=== PATIENT | male | born 1940 | race Caucasian/White ===

== ENCOUNTER 2016-08-25 14:09 | Outpatient (RCR) | payer OTHER ==
[~2016-08-25 14:09] MED LIST: AMLO5TAB2 PO; ASA PO; ASP81CT PO; CLIN300C3 PO; DCS100C PO; DUTA1CPM PO; FURO40TA4 PO; HYDR-707 PO; HYDR1TAB66 PO; HYDR1TAB86 PO; JAYLIN PO; KCL20TCR PO; MELO-195 PO; NFNEB10T PO; PNT40TEC PO; PRD20T PO; SIMV40TA4 PO; TRM50T PO
--- OUTSIDE RECORDS SUMMARY | 2016-08-25 14:13 | XMS REPORT | Continuity of Care Document ---
Author Author [facility] Organization [facility] Address Unknown Phone Unavailable Care Team Providers Care Diploma Pharmacy Technician Name Role Phone DEMARCUS BRADY MD PCP Insurance Providers Payer Name Policy Number Subscriber Name [id number] Lucy Melara 01 Advance Directives Directive Response Recorded Date/Time Advance Directives No 07/18/14 11:35am Health Care Power of Cannon Crewmember No 07/18/14 11:35am Organ Donor No 07/18/14 11:35am Resuscitation Status Full Code 07/18/14 11:35am Problems Medical Problems Problem Onset Date Status Anaphylactic reaction Unknown Active Medications Medication Dose Route Sig Days/Qty Instructions Order Date Discontinued Date Status Nebivolol Hcl 10 Mg PO DAILY 08/15/11 Active Meloxicam (Mobic) 15 Mg PO DAILY 08/15/11 06/10/13 Discontinued [Asa ] 81 Mg PO DAILY 08/15/11 10/02/12 Discontinued [Stacie] 0.5 PO BEDTIME 0.5/0.4MG DAILY 08/15/11 01/11/13 Discontinued Acetaminophen/Hydrocodone Bitart (Lortab) 1 Each PO Q 4 - 6 HRS PRN 08/15/11 01/03/13 Discontinued Amlodipine Besylate (Norvasc 5 Mg) 5 Mg PO DAILY 08/15/11 05/16/12 Discontinued Simvastatin 40 Mg PO BEDTIME 05/04/12 Active Furosemide (Lasix) 40 Mg PO DAILY 05/16/12 10/02/12 Discontinued Potassium Chloride 20 Meq PO DAILY 05/16/12 10/02/12 Discontinued Docusate Sodium 100 Mg PO THREE TIMES A DAY 05/16/12 10/02/12 Discontinued Tramadol HCl 50 Mg PO NEEDED 05/16/12 10/02/12 Discontinued Clindamycin HCl 1 Each PO FOUR TIMES DAILY 40 Qty 05/16/12 10/02/12 Discontinued Aspirin 81 Mg PO DAILY 10/02/12 Active Dutasteride/Tamsulosin Hcl 1 Tab PO BEDTIME 0.5/0.4mg TABS 01/11/13 Active Docusate Sodium 200 Mg PO TWICE A DAY PRN 01/11/13 06/10/13 Discontinued Hydrocodone Bit/Acetaminophen 5 - 500 Mg PO BEDTIME FOR PAIN 01/11/13 01/20/14 Discontinued Acetaminophen/Hydrocodone Bitart 1 - 2 Each PO Q 4 - 6 HR PRN 40 Qty 06/10/13 Discontinued Pantoprazole Sodium 1 Tab PO DAILY 30 Qty 06/10/13 Active Prednisone 20 Mg PO TWICE A DAY 3 Days 07/18/14 Active Social History Social History Problem Response Recorded Date/Time Alcohol Use Denies Use 07/18/2014 11:35am Recreational Drug Use No 07/18/2014 11:35am Recent Foreign Travel No 07/18/2014 11:35am Recent Infectious Disease Exposure No 07/18/2014 11:35am Hospitalization with Isolation Denies 07/18/2014 11:35am Smoking Status Never a Smoker 07/18/2014 11:35am Query Response Start Date Stop Date Smoking Status Never a Smoker Hospital Discharge Instructions No hospital discharge instructions. Plan of Care No plan of care. Functional Status No functional status results. Allergies, Adverse Reactions, Alerts Allergen Type Severity Reaction Status Last Updated Iodinated Contrast Media - IV Dye Allergy Severe ANAPHYLAXIS Active morphine Allergy Intermediate RASH Active 05/16/12 iv contrast dye Allergy Severe anaphylaxis Active 07/18/14 Immunizations No immunization records. Vital Signs Acute Vital Signs Vital Response Date/Time Temperature (Fahrenheit) 99.4 degrees F (97.6 - 99.5) Temperature (Calculated Celsius) 37.49534 degrees C (36.4 - 37.5) Temperature Source Temporal Pulse Rate (adult) 107 bpm (60 - 90) Respiratory Rate 26 bpm (12 - 24) O2 Sat by Pulse Oximetry 97 % (88 - 100) Blood Pressure 143/70 mm Hg Pain Pain Intensity 0 Height (Feet) 5 feet Height (Inches) 5 inches Height (Calculated Centimeters) 165.785844 cm Weight (Pounds) 160 pounds Weight (Calculated Kilograms) 72.296550 kilograms Calculated BMI 26.62 Results Test Source Date Result Interp. Ref. Range Comments Activated Partial Thromboplast Time May 16, 2012 10:10pm 36 SEC H 24- 35 Alanine Aminotransferase (ALT/SGPT) July 15, 2014 3:03pm 16 U/L N 0 -55 Albumin July 15, 2014 3:03pm 3.6 G/DL N 3.2-4.5 Alkaline Phosphatase July 15, 2014 3:03pm 64 U/L N 40-136 Aspartate Amino Transf (AST/SGOT) July 15, 2014 3:03pm 13 U/L N 5- 34 BUN/Creatinine Ratio July 15, 2014 3:03pm 19 - Basophils # (Auto) July 15, 2014 3:03pm 0.0 10^3/uL N 0.0-0.1 Basophils (%) (Auto) July 15, 2014 3:03pm 0 % N 0-10 Blood Urea Nitrogen July 15, 2014 3:03pm 15 MG/DL N 7-18 Calcium Level July 15, 2014 3:03pm 9.0 MG/DL N 8.5-10.1 Carbon Dioxide Level July 15, 2014 3:03pm 32 MMOL/L N 21-32 Chloride Level July 15, 2014 3:03pm 104 MMOL/L N 98-107 Creatine Kinase MB May 04, 2012 2:31pm 2.3 NG/ML N 0.0-3.6 Creatinine July 15, 2014 3:03pm 0.81 MG/DL N 0.60-1.30 Eosinophils # (Auto) July 15, 2014 3:03pm 0.1 10^3/uL N 0.0-0.3 Eosinophils (%) (Auto) July 15, 2014 3:03pm 1 % N 0-10 Erythrocyte Sedimentation Rate May 16, 2012 10:10pm 28 MM/HR N 0-30 Ferritin July 15, 2014 3:03pm 26 NG/ML - Glucose Level July 15, 2014 3:03pm 102 MG/DL N 70-105 Hematocrit July 15, 2014 3:03pm 42 % N 40-54 Hemoglobin July 15, 2014 3:03pm 14.3 G/DL N 13.3-17.7 Hemoglobin A1c May 21, 2013 11:25am 5.7 % N 4.5-6.2 Iron Level July 15, 2014 3:03pm 62 UG/DL - Lymphocytes # (Auto) July 15, 2014 3:03pm 1.2 X 10^3 N 1.0-4.0 Lymphocytes (%) (Auto) July 15, 2014 3:03pm 16 % N 12-44 Magnesium Level January 19, 2013 9:15am 1.8 MG/DL N 1.8-2.4 Mean Corpuscular Hemoglobin July 15, 2014 3:03pm 33 PG N 25-34 Mean Corpuscular Hemoglobin Concent July 15, 2014 3:03pm 34 G/DL N 32-36 Mean Corpuscular Volume July 15, 2014 3:03pm 96 FL N 80-99 Mean Platelet Volume July 15, 2014 3:03pm 9.5 FL N 7.4-10.4 Monocytes # (Auto) July 15, 2014 3:03pm 0.7 X 10^3 N 0.0-1.0 Monocytes (%) (Auto) July 15, 2014 3:03pm 10 % N 0-12 Myoglobin May 04, 2012 2:31pm 43 UG/L N 10-92 Neutrophils # (Auto) July 15, 2014 3:03pm 5.1 X 10^3 N 1.8-7.8 Neutrophils (%) (Auto) July 15, 2014 3:03pm 72 % N 42-75 Phosphorus Level January 19, 2013 9:15am 3.6 MG/DL N 2.5-4.9 Platelet Count July 15, 2014 3:03pm 187 10^3/uL N 130-400 Potassium Level July 15, 2014 3:03pm 4.0 MMOL/L N 3.6-5.0 Prealbumin January 18, 2013 9:30am 14.2 MG/DL L 18.0-35.7 Comments to Supervisor Electronics Inspection: USE BLOOD IN LAB IF POSSIBLEComments to Supervisor Electronics Inspection: USE BLOOD IN LAB IF POSSIBLE Prothromb Time International Ratio May 16, 2012 10:10pm 1.0 N 0.8- 1.4 INTERPRETIVE DATASUGGESTED THERAPEUTIC RANGE FOR INR'S : VENOUS THROMBOSIS, PULMONARY EMBOLISM, OR PREVENTION OF SYSTEMIC EMBOLISM (EG. IN ATRIAL FIBRILLATION): 2.0 - 3.0 MECHANICAL PROSTHETIC HEART VALVES: 2.5 - 3.5* *NOTE: INR'S UP TO 4.5 MAY BE NECESSARY IN SELECTED GROUPS OF HIGH RISK PATIENTS. [employer] CONSENSUS CONFERENCE ON ANTITHROMBOTIC THERAPY (2000). Prothrombin Time May 16, 2012 10:10pm 13.6 SEC N 12.2-14.7 Red Blood Count July 15, 2014 3:03pm 4.36 10^6/uL N 4.35-5.85 Red Cell Distribution Width July 15, 2014 3:03pm 12.4 % N 10.0- 14.5 Sodium Level July 15, 2014 3:03pm 142 MMOL/L N 135-145 Total Bilirubin July 15, 2014 3:03pm 0.3 MG/DL N 0.1-1.0 Total Iron Binding Capacity July 15, 2014 3:03pm 285 UG/DL - Total Protein July 15, 2014 3:03pm 6.2 G/DL L 6.4-8.2 Transferrin % Saturation July 15, 2014 3:03pm 22 % - Triglycerides Level January 18, 2013 9:30am 76 MG/DL N 30.0-150.0 Comments to Supervisor Electronics Inspection: USE BLOOD IN LAB IF POSSIBLEComments to Supervisor Electronics Inspection: USE BLOOD IN LAB IF POSSIBLE Troponin I May 04, 2012 2:31pm 0.15 MG/ML H 0.00-0.10 Urine Bacteria May 21, 2013 4:20pm NEGATIVE /HPF - Urine Bilirubin June 18, 2013 1:45pm NEGATIVE - Urine Casts May 21, 2013 4:20pm NONE /LPF - Urine Clarity June 18, 2013 1:45pm CLEAR - Urine Color June 18, 2013 1:45pm YELLOW - Urine Crystals May 21, 2013 4:20pm NONE /LPF - Urine Culture Indicated May 21, 2013 4:20pm NO - Urine Glucose (UA) June 18, 2013 1:45pm NEGATIVE - Urine Ketones June 18, 2013 1:45pm NEGATIVE - Urine Leukocyte Esterase June 18, 2013 1:45pm NEGATIVE - Urine Mucus May 21, 2013 4:20pm NEGATIVE /LPF - Urine Nitrite June 18, 2013 1:45pm NEGATIVE - Urine Protein June 18, 2013 1:45pm NEGATIVE - Urine RBC May 21, 2013 4:20pm NONE /HPF - Urine Specific [place] June 18, 2013 1:45pm 1.015 L - Urine Urobilinogen June 18, 2013 1:45pm NORMAL MG/DL - Urine WBC May 21, 2013 4:20pm RARE /HPF - Urine pH June 18, 2013 1:45pm 7 - White Blood Count July 15, 2014 3:03pm 7.1 10^3/uL N 4.3-11.0 Glucometer January 20, 2013 10:50am 116 MG/DL H 70-110 Lab Scanned Report May 04, 2012 3:40pm LAB Reports [id number] - Estimat Glomerular Filtration Rate July 15, 2014 3:03pm > 60 - GFR INTERPRETIVE DATA UNITS FOR ESTIMATED GFR (eGFR): mL/min/1.73 M2 REFERENCE RANGE FOR ESTIMATED GFR (eGFR) eGFR NORMAL eGFR >60 MODERATELY DECREASED eGFR 30-59 SEVERLY DECREASED eGFR 15-29 KIDNEY FAILURE <15 (OR DIALYSIS) Creatine Kinase May 04, 2012 2:31pm 102 U/L N 1-205 Cardiac Panel Pathologist Review May 04, 2012 2:31pm SEE CARDIAC PATH REV - Stool Occult Blood Immunoassay May 24, 2013 10:10am NEGATIVE - SPECIMEN #2 Urine RBC (Auto) June 18, 2013 1:45pm NEGATIVE - Blood Culture Peripheral-Lt Hand May 16, 2012 10:25pm No growth MRSA Screen Nasal January 11, 2013 9:00am MRSA not isolated Procedures No known history of procedures. Encounters Encounter Location Date/Time Departed Emergency Room Via [facility] 07/18/14 11:29am Registered Clinic Via [facility] 07/18/14 9:52am Registered Recurring Via [facility] 07/15/14 2:59pm Recent Diagnosis
[2016-08-25 14:36] LABS: BASOPHILS % (AUTO) 0 % (0-10); EOSINOPHILS # (AUTO) 0.1 10^3/uL (0.0-0.3); EOSINOPHILS % (AUTO) 1 % (0-10); LYMPHOCYTES # (AUTO) 0.8 X 10^3 (1.0-4.0); LYMPHOCYTES % (AUTO) 12 % (12-44); MEAN CORPUSCULAR HEMOGLOBIN 33 PG (25-34); MEAN CORPUSCULAR HGB CONC 34 G/DL (32-36); MEAN CORPUSCULAR VOLUME 95 FL (80-99); MEAN PLATELET VOLUME 10.8 FL (7.4-10.4); MONOCYTES # (AUTO) 0.5 X 10^3 (0.0-1.0); MONOCYTES % (AUTO) 8 % (0-12); NEUTROPHILS # (AUTO) 4.9 X 10^3 (1.8-7.8); NEUTROPHILS % (AUTO) 78 % (42-75); PLATELET COUNT 174 10^3/uL (130-400); RED BLOOD COUNT 4.53 10^6/uL (4.35-5.85); RED CELL DISTRIBUTION WIDTH 12.5 % (10.0-14.5); WHITE BLOOD COUNT 6.3 10^3/uL (4.3-11.0)
[2016-08-25 15:29] LABS: ALANINE AMINOTRANSFERASE 15 U/L (0-55); ALBUMIN 3.9 G/DL (3.2-4.5); ANION GAP 9 MMOL/L (5-14); ASPARTATE AMINO TRANSFERASE 12 U/L (5-34); BILIRUBIN,TOTAL 0.5 MG/DL (0.1-1.0); BLOOD UREA NITROGEN 17 MG/DL (7-18); BUN/CREATININE RATIO 20; CARBON DIOXIDE 30 MMOL/L (21-32); CHLORIDE 103 MMOL/L (98-107); CREATININE SERUM 0.87 MG/DL (0.60-1.30); GFR ESTIMATED > 60; GLUCOSE 115 MG/DL (70-105); SODIUM 142 MMOL/L (135-145); TOTAL PROTEIN 6.3 G/DL (6.4-8.2)
[2016-08-25 16:29] LABS: %SAT TOTAL IRON BINDING CAPIC 32 % (15-50); TIBC 278 ug/dL (280-380)
[2016-08-26 06:50] LABS: FERRITIN 30 ng/mL (25-300); UIBC 189 ug/dL (55-450)
== END 2016-11-23 | disposition home or self-care (01) ==
LOC: ONC 14:09
PROVIDERS: ATTEND Internal Medicine Hematology & Oncology
DX: C18.3 Malignant neoplasm of hepatic flexure (principal); D50.9 Iron deficiency anemia, unspecified; I25.10 Atherosclerotic heart disease of native coronary artery without angina pectoris; I10 Essential (primary) hypertension; N40.0 Benign prostatic hyperplasia without lower urinary tract symptoms; Z95.1 Presence of aortocoronary bypass graft; Z90.49 Acquired absence of other specified parts of digestive tract
CPT/HCPCS: 36415; 80053; 82378; 82728; 83540; 84153; 85025; 99213

== ENCOUNTER → 2016-12-20 | Outpatient (CLI) | payer OTHER ==
--- OUTSIDE RECORDS SUMMARY | 2016-12-20 14:18 | XMS REPORT | Continuity of Care Document ---
Author Author [facility] Organization [facility] Address Unknown Phone Unavailable Care Team Providers Care Medical Front Desk Coordinator Name Role Phone DEMARCUS BRADY MD PCP Insurance Providers Payer Name Policy Number Subscriber [id number] Advance Directives Directive Response Recorded Date/Time Advance Directives No 07/18/14 11:35am Health Care Power of Cloth Shearer No 07/18/14 11:35am Organ Donor No 07/18/14 [...] F (97.6 - 99.5) Temperature (Calculated Celsius) 37.40340 degrees C (36.4 - 37.5) Temperature Source Temporal Pulse Rate (adult) 107 bpm (60 - 90) Respiratory Rate 26 bpm (12 - 24) O2 Sat by Pulse Oximetry 97 % (88 - 100) Blood Pressure 143/70 mm Hg Pain Pain Intensity 0 Height (Feet) 5 feet Height (Inches) 5 inches Height (Calculated Centimeters) 165.863353 cm Weight (Pounds) 160 pounds Weight (Calculated Kilograms) 72.387731 kilograms Calculated BMI 26.62 Results Test Source [...] 9:30am 14.2 MG/DL L 18.0-35.7 Comments to Manager Shift: USE BLOOD IN LAB IF POSSIBLEComments to Manager Shift: USE BLOOD IN LAB IF POSSIBLE Prothromb [...] SELECTED GROUPS OF HIGH RISK PATIENTS. [employer] CONSENSUS CONFERENCE ON [...] 9:30am 76 MG/DL N 30.0-150.0 Comments to Manager Shift: USE BLOOD IN LAB IF POSSIBLEComments to Manager Shift: USE BLOOD IN LAB IF POSSIBLE Troponin [...] 2013 4:20pm NONE /HPF - Urine Specific [place] June 18, 2013 1:45pm 1.015 L - Urine Urobilinogen June 18, 2013 1:45pm NORMAL MG/DL - Urine WBC May 21, 2013 4:20pm RARE /HPF - Urine pH June 18, 2013 1:45pm 7 - White Blood Count July 15, 2014 3:03pm 7.1 10^3/uL N 4.3-11.0 Glucometer January 20, 2013 10:50am 116 MG/DL H 70-110 Lab Scanned Report May 04, 2012 3:40pm LAB Reports [id number] - Estimat Glomerular Filtration Rate July 15, [...] Encounter Location Date/Time Departed Emergency Room Via [facility] 07/18/14 11:29am Registered Clinic [facility] 07/18/14 9:52am Registered Recurring Via [facility] 07/15/14 2:59pm Recent Diagnosis
--- NOTE | 2016-12-20 15:37 | Diagnostic Imaging Report ---
PROCEDURE: MRI lumbar spine. TECHNIQUE: Multiplanar, multisequence MRI of the lumbar spine was performed without contrast. INDICATION: Back pain. FINDINGS: The previous MRI lumbar spine exam performed on 04/17/14 noted multilevel neuroforaminal narrowing and spinal cord narrowing with the L4-L5 level the most severely affected. Specifically, there was trefoil stenosis at L4-L5 and there was narrowing of the neuroforamen bilaterally at this level, particularly on the left. On this exam, the degenerative disc, ligamentous and bony disease at the L4-L5 level noted previously is again evident and does not seem to have progressed significantly. However, in the interval since the prior exam, two small (1.5 x 3.5 mm and 3.5 x 5.6 mm) synovial cysts have developed along the medial aspect of the facet joint on the right at L4-L5. These cysts do compress the right lateral aspect of the thecal sac at this level and do result in somewhat greater stenosis than noted on the prior exam. The neuroforaminal narrowing at L4-L5 is essentially no different than on the previous study. There is still no significant central stenosis at the L3-L4 level. However, there does seem to be somewhat greater narrowing of the neuroforamen on the right at this level and there may be encroachment of the exiting right nerve root at L3-L4. The remainder of the lumbar spine is unchanged when compared to the prior study. No new area of spinal stenosis or nerve root encroachment has developed. There is no abnormal signal arising from the cord or the vertebral bodies to indicate an acute abnormality. There is no sign of a paraspinal mass. IMPRESSION: 1. While the degenerative disc, ligamentous and bony disease at the L4-L5 level have not changed significantly, 2 small synovial cysts have developed along the right posterolateral aspect of the thecal sac. These do result in greater narrowing of the area of the thecal sac than noted on the prior exam. There is also greater narrowing of the neuroforamen on the right at L3-L4 due to degenerative disc and bony disease. 2. The remainder of the lumbar spine is unchanged when compared to the prior study. No new area of spinal stenosis or nerve root encroachment has developed. 3. There is no sign of an acute bony abnormality or of a cord lesion. Dictated by: Dictated on workstation # [id number]
== END ==
LOC: RAD 14:14
PROVIDERS: ATTEND Pain Medicine Pain Medicine
DX: M51.36 Other intervertebral disc degeneration, lumbar region (principal); M71.38 Other bursal cyst, other site
CPT/HCPCS: 72148

== ENCOUNTER → 2017-02-14 | Outpatient (CLI) | payer OTHER ==
[~2017-02-14] MED LIST changes: +CATHETER FLUSH 10 ML SYR IV PRN; +REGADENOSON 0.4 MG/5 ML SYR (LEXISCAN) IV ONE
[2017-02-14 13:12] VITALS: BP 158/80
--- NOTE | 2017-02-15 07:41 | STRESS TEST ---
DATE OF SERVICE: 02/14/2017 RESTING AND POST REGADENOSON TECHNETIUM 99M TETROFOSMIN SPECT CT IMAGING CLINICAL DIAGNOSIS: Shortness of breath, coronary artery disease. Baseline images were carried out after injection of 9.55 mCi of technetium-99m tetrofosmin. This was followed by 0.4 mg regadenoson and 28.2 mCi of technetium-99m tetrofosmin for stress imaging. The electrocardiogram showed sinus rhythm with isolated premature atrial and ventricular contractions throughout the study. The electrocardiogram did not change significantly with the regadenoson infusion. Review of images at rest and following stress does not indicate any distinct perfusion defects consistent with significant myocardial ischemia or infarction. Some diaphragmatic attenuation is seen both at rest and following regadenoson infusion. Gated images show normal global left ventricular systolic function with normal regional wall motion. Left ventricular ejection fraction is calculated to be 51%. Left ventricular end-diastolic volume is 88 mL. TID is absent (1.1). CONCLUSIONS: 1. No evidence of any significant myocardial ischemia or infarction on this study. 2. Normal regional wall motion. 3. Normal global left ventricular systolic function with a calculated ejection fraction of 51%. Job ID: [id number] DocumentID: [id number] Dictated Date: 02/14/2017 17:26:40 Transit Mixer Driver Date: 02/14/2017 20:03:03 Dictated By: JEFFERY PRADO MD, MA, FACP, FACC,
== END ==
LOC: CARD 11:59
PROVIDERS: ATTEND Nurse Practitioner Family
DX: I25.10 Atherosclerotic heart disease of native coronary artery without angina pectoris (principal); R06.09 Other forms of dyspnea; R07.89 Other chest pain; I10 Essential (primary) hypertension; E78.4 Other hyperlipidemia
CPT/HCPCS: 78452; 93017

== ENCOUNTER 2017-07-20 05:45 | Outpatient (CLI) | payer OTHER ==
[~2017-07-20] VITALS: Ht 167.6 cm; Wt 76.2 kg
[~2017-07-20 05:45] MED LIST changes: -CATHETER FLUSH 10 ML SYR IV PRN; -REGADENOSON 0.4 MG/5 ML SYR (LEXISCAN) IV ONE
[2017-07-20] MEDS ORDERED: PANT40TA3 PO (11:28)
[2017-07-20] MEDS ORDERED: SIMV20TA3 PO (11:28)
[2017-07-20] MEDS ORDERED: ASPI-999 PO (11:28)
[2017-07-20] MEDS ORDERED: NFNEB10T PO (11:28)
[2017-07-20] MEDS ORDERED: TRAZ100T92 PO (11:28)
[2017-07-20] MEDS ORDERED: DUTA1CPM PO (11:28)
[2017-07-20] MEDS ORDERED: HYDR-3820 PO (11:30)
[2017-07-20] MEDS ORDERED: HYDR-3812 PO (11:30)
[2017-07-20] MEDS ORDERED: GABA-488 PO (11:30)
== END 2017-07-20 11:31 ==
LOC: PREOP 05:45
PROVIDERS: ATTEND Surgery
DX: Z01.818 Encounter for other preprocedural examination (principal); Z85.038 Personal history of other malignant neoplasm of large intestine

== ENCOUNTER 2017-07-24 07:00 | Day surgery (SDC) | payer OTHER ==
--- NOTE | 2017-07-21 14:11 | History & Physicial ---
History of Present Illness History of Present Illness Reason for visit/HPI To undergo surveillance colonoscopy. Carcinoma of the hepatic flexure in 2012 Date of Admission 07/24/2017 Date Seen by Provider: Jul 21, 2017 Time Seen by Provider: 14:09 I consulted on this patient on 07/21/17 14:08 Attending Physician Lyssa Patterson MD Admitting Physician Javy Slois MD Consult Allergies and Home Medications Allergies Coded Allergies: Iodinated Contrast- Oral and IV Dye (Unverified Allergy, Severe, ANAPHYLAXIS, 07/18/14) LIPS SWELLED, THROAT SWELLED, HIVES ON FACE morphine (Verified Allergy, Intermediate, RASH, 05/16/12) Home Medications Aspirin 81 Mg Tab.chew, 81 MG PO DAILY, (Reported) Dutasteride/Tamsulosin HCl 1 Each Cpmp.24hr, 1 EACH PO DAILY, (Reported) Gabapentin 300 Mg Capsule, 300 MG PO BID, (Reported) Hydrocodone/Acetaminophen 1 Each Tablet, 1 EACH PO Q6H PRN for PAIN, (Reported) Hydrocodone/Acetaminophen 1 Each Tablet, 1 EACH PO HS, (Reported) Nebivolol HCl 10 Mg Tab, 10 MG PO DAILY, (Reported) Pantoprazole Sodium 40 Mg Tablet.dr, 40 MG PO DAILY, (Reported) Simvastatin 20 Mg Tablet, 20 MG PO HS, (Reported) Trazodone HCl 100 Mg Tablet, 100 MG PO HS, (Reported) Past [id number] Hx Patient Social History Marrital Status: Employed/Student: retired Alcohol Use: Denies Use Smoking Status: Never a Smoker Surgeries Yes Abdominal, Bowel Surgery, CABG, Orthopedic Respiratory No Cardiovascular Yes Coronary Artery Disease, Hypertension Genitourinary No Gastrointestinal Yes Ulcer Musculoskeletal Yes Arthritis, Fractures Endocrine History of Endocrine Disorders: No HEENT History of HEENT Disorders: No Loss of Vision: Denies Hearing Impairment: Denies Cancer Yes Colon Integumentary History of Skin or Integumenta: No Constitutional: no symptoms reported Respiratory: no symptoms reported Cardiovascular: no symptoms reported Gastrointestinal: no symptoms reported Musculoskeletal: no symptoms reported Skin: no symptoms reported Physical Exam Vital Signs Capillary Refill : General Appearance: No Apparent Distress HEENT: Normal ENT Inspection Neck: Normal Inspection Cardiovascular: Regular Rate, Rhythm Gastrointestinal: Non Tender, Soft Rectal: Deferred Back: Normal Inspection Extremity: Normal Inspection Neurologic/Psychiatric: Alert, Oriented x3 Assessment/Plan Assessment and Plan Gentleman with a carcinoma the hepatic flexure resected in 2012. For surveillance Problems: LYSSA PATTERSON MD Jul 21, 2017 14:11
[~2017-07-24] VITALS: Ht 167.6 cm; Wt 76.2 kg
[~2017-07-24 07:00] MED LIST changes: +ASPI-999 PO; +GABA-488 PO; +HYDR-3812 PO; +HYDR-3820 PO; +PANT40TA3 PO; +SIMV20TA3 PO; +TRAZ100T92 PO
--- OUTSIDE RECORDS SUMMARY | 2017-07-24 07:07 | XMS REPORT | Continuity of Care Document ---
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 RENEE CARRASCO MD Ot Z95.1 PRESENCE OF AORTOCORONARY BYPASS GRAFT 11/29/2016 RENEE CARRASCO MD Ot 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 11/29/2016 RENEE CARRASCO MD Ot D50.9 IRON DEFICIENCY ANEMIA, UNSPECIFIED 11/29/2016 RENEE CARRASCO MD Ot I10 ESSENTIAL (PRIMARY) HYPERTENSION 11/29/2016 RENEE CARRASCO MD Ot I25.10 ATHSCL HEART DISEASE OF [place] CORONARY 11/29/2016 RENEE CARRASCO MD, Ot N40.0 BENIGN PROSTATIC HYPERPLASIA WITHOUT LOW 11/29/2016 RENEE CARRASCO MD, Ot 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 11/29/2016 RENEE CARRASCO MD, Ot Z95.1 PRESENCE OF AORTOCORONARY BYPASS GRAFT 12/21/2016 GARRETT HOLLOWAY MD Ot M51.36 OTHER INTERVERTEBRAL DISC DEGENERATION, 12/21/2016 GARRETT HOLLOWAY MD Ot M71.38 OTHER BURSAL CYST, OTHER SITE 12/23/2016 GARRETT HOLLOWAY MD Ot M51.36 OTHER INTERVERTEBRAL DISC DEGENERATION, 12/23/2016 GARRETT HOLLOWAY MD Ot M71.38 OTHER BURSAL CYST, OTHER SITE 12/26/2016 GARRETT HOLLOWAY MD Ot M51.36 OTHER INTERVERTEBRAL DISC DEGENERATION, 12/26/2016 GARRETT HOLLOWAY MD Ot M71.38 OTHER BURSAL CYST, OTHER SITE 01/10/2017 GARRETT HOLLOWAY MD Ot M51.36 OTHER INTERVERTEBRAL DISC DEGENERATION, 01/10/2017 GARRETT HOLLOWAY MD Ot M71.38 OTHER BURSAL CYST, OTHER SITE 02/20/2017 RICA CLANCY Ot E78.4 OTHER HYPERLIPIDEMIA 02/20/2017 RICA CLANCY [employer] Ot I10 ESSENTIAL (PRIMARY) HYPERTENSION 02/20/2017 RICA CLANCYP Ot I25.10 ATHSCL HEART DISEASE OF [place] CORONARY 02/20/2017 RICA CLANCY [employer] Ot R06.09 OTHER FORMS OF DYSPNEA 02/20/2017 RICA CLANCY [employer] Ot R07.89 OTHER CHEST PAIN Procedures Code Description Performed By Performed On 37.22 LEFT HEART CARDIAC CATH 05/04/2012 88.53 LT HEART ANGIOCARDIOGRAM 05/04/2012 88.56 CORONAR ARTERIOGR-2 CATH 05/04/2012 17.33 LAPAROSCOPIC RIGHT HEMICOLECTOMY 01/15/2013 38.93 VENOUS CATHETERIZATION NEC 01/15/2013 Results Encounters ACCT No. Visit Date/Time Discharge Status Pt. Type Provider Facility Loc./Unit Complaint [id number] 02/14/2017 11:59:00 2016 23:59:59 CLS Outpatient JANNETHRICA CUADRA [facility] CARD R06.09,R07.89,I25.10 [id number] 12/20/2016 14:14:00 2016 23:59:59 CLS Outpatient GARRETT HOLLOWAY MD [facility] RAD LOW BACK PAIN [id number] 11/24/2016 00:11:00 2016 23:59:59 CLS Preadmit RENEE CARRASCO MD [facility] ONC [id number] 08/25/2016 14:09:00 2016 00:01:00 DIS Outpatient RENEE CARRASCO MD [facility] ONC [id number] 10/14/2016 10:44:00 2015 11:49:00 DIS Outpatient GARRETT HOLLOWAY MD [facility] CARD DISC DISORDER [id number] 06/06/2016 13:52:00 2015 13:35:00 DIS Outpatient RENEE CARRASCO MD [facility] ONC [id number] 02/18/2016 13:38:00 2015 00:01:00 DIS Outpatient RENEE CARRASCO MD [facility] ONC [id number] 02/24/2016 13:16:00 2015 23:59:59 CLS Outpatient RENEE CARRASCO MD [facility] RAD CANCER OF COLON,BENIGN PROSTATIC HYPERTROPHY [id number] 01/29/2016 13:45:00 2015 15:23:00 DIS Outpatient KIKE DEL CID APRN [facility] REHAB KNEE PAIN [id number] 11/04/2015 12:58:00 2015 23:59:59 CLS Outpatient CAROLYNN STYLES DO [facility] RAD DEGENERATIVE DISC DISEASE [id number] 08/19/2015 14:04:00 2014 23:59:59 CLS Outpatient RENEE CARRASCO MD [facility] ONC [id number] 04/20/2015 15:35:00 2014 23:59:59 CLS Outpatient DEMARCUS BRADY MD [facility] RAD LEFT KNEE PAIN W/SWELLING [id number] 01/01/2015 14:38:00 2014 00:01:00 DIS Outpatient RENEE CARRASCO MD [facility] ONC [id number] 02/11/2015 15:45:00 2014 23:59:59 CLS Outpatient NITHIN MILES DIRECTOR OF [employer] [facility] RAD HAND AND JOINT PAIN [id number] 07/15/2014 14:59:00 2013 00:01:00 DIS Outpatient RENEE CARRASCO MD [facility] ONC [id number] 07/18/2014 09:52:00 2013 23:59:59 CLS Outpatient RENEE CARRASCO MD [facility] RAD COLON CA [id number] 07/18/2014 11:29:00 2013 15:24:00 DIS Emergency CHARLIE DINH DIRECTOR [employer] [facility] ER ALLERGIC REACTION [id number] 06/13/2014 07:51:00 2013 08:50:00 DIS Outpatient GARRETT HOLLOWAY MD [facility] CARD DDD [id number] 03/11/2014 14:17:00 2013 00:01:00 DIS Outpatient RENEE CARRASCO MD [facility] ONC [id number] 05/23/2014 07:14:00 2013 08:11:00 DIS Outpatient GARRETT HOLLOWAY MD [facility] CARD SACROILLIAC JOINT DISFUNCTION [id number] 04/17/2014 09:29:00 2013 23:59:59 CLS Outpatient CAROLYNN STYLES DO [facility] RAD LUMBAR SPONDYLOSIS, RT HIP PAIN [id number] 11/05/2013 14:17:00 2013 00:01:00 DIS Outpatient RENEE CARRASCO MD [facility] ONC [id number] 01/20/2014 06:31:00 2013 09:40:00 DIS Outpatient LYSSA KEMP MD Via [facility] 1 YEAR CHECK UP OF COLON CANCER [id number] 01/15/2014 07:12:00 2013 23:59:59 CLS Outpatient LYSSA KEMP MD [facility] PREOP 1 YEAR CHECK UP OF COLON CANCER [id number] 10/30/2013 15:14:00 2013 23:59:59 CLS Outpatient DEMARCUS BRADY MD [facility] RAD OSTEOAPHRITIS,UNSPECIFIED [id number] 06/18/2013 12:58:00 2012 00:01:00 DIS Outpatient RENEE CARRASCO MD [facility] ONC [id number] 06/10/2013 10:12:00 2012 12:35:00 DIS Outpatient LYSSA KEMP MD [facility] SDC GASTRITIS [id number] 06/05/2013 07:14:00 2012 23:59:59 CLS Outpatient LYSSA KEMP MD [facility] PREOP GASTRITIS [id number] 05/21/2013 15:02:00 2012 23:59:59 CLS Outpatient SIMRAN VILLAVICENCIO [facility] LAB [id number] 05/14/2013 09:38:00 2012 23:59:59 CLS Outpatient RENEE CARRASCO MD [facility] RAD COLO-RECTAL CA [id number] 02/22/2013 11:05:00 2012 00:01:00 DIS Outpatient RENEE CARRASCO MD [facility] ONC [id number] 07/24/2017 08:00:00 PEN Preadmit LYSSA KEMP MD [facility] ENDO HX COLON CANCER [id number] 02/11/2015 15:43:00 Document Registration [id number] 02/07/2013 08:45:00 Document Registration [id number] 01/15/2013 07:11:00 Document Registration [id number] 01/11/2013 08:12:00 Document Registration [id number] 01/07/2013 10:58:00 Document Registration [id number] 01/03/2013 08:10:00 Document Registration [id number] 10/11/2012 06:03:00 Document Registration [id number] 10/02/2012 09:10:00 Document Registration [id number] 08/27/2012 10:59:00 Document Registration [id number] 08/06/2012 14:08:00 Document Registration [id number] 05/16/2012 20:06:00 Document Registration [id number] 05/04/2012 15:40:00 Document Registration [id number] 08/15/2011 05:37:00 Document Registration [id number] 12/16/2010 15:48:00 Document Registration
[2017-07-24] MEDS ORDERED: NS IV 500 ML 500 ML IV PRN (07:15)
[2017-07-24] MEDS ORDERED: NS IV 500 ML 500 ML ONE (07:32)
[2017-07-24 07:47] VITALS: BP 141/71
[2017-07-24] MEDS ORDERED: MIDAZOLAM 2 MG/2 ML (VERSED) VIAL ONE ×3 (07:53)
[2017-07-24] MEDS ORDERED: fentaNYL INJECTION 100 MCG/2 ML AMP ONE ×2 (07:53→08:26)
--- NOTE | 2017-07-24 07:58 | Conscious Sedation/ASA ---
Conscious Sedation Pre-Proced Time Reviewed: 07:58 ASA Class: 2 Airway Mallampati Classification: (port gamble appropriate class) I. II. III, IV Lungs Heart ASA score ASA 1: a normal healthy patient ASA 2: a patient with a mild systemic disease (mid diabetes, controlled hypertension, obesity ASA 3: a patient with a severe systemic disease that limits activity (angina , COPD, prior Myocardial infarction) ASA 4: a patient with an incapacitating disease that is a constant threat to life (CHF, renal failure) ASA 5: a moribund patient not expected to survive 24 hrs. (ruptured aneurysm) ASA 6: a declared brain patient whose organs are being harvested. For emergent operations, add the letter E after the classification Grade 1 Sedation Plan: Discussed options with patient/fam Note The patient is an appropriate candidate to undergo the planned procedure, sedation, and anesthesia. The patient immediately re-assessed prior to indication. LYSSA KEMP MD Jul 24, 2017 7:58 am
[2017-07-24] MEDS: fentaNYL INJECTION 100 MCG/2 ML AMP IVP PRN ×3 (08:00→08:31)
[2017-07-24] MEDS: MIDAZOLAM 2 MG/2 ML (VERSED) VIAL IVP PRN ×3 (08:01→08:07)
[2017-07-24 09:15] VITALS: BP 119/70
[2017-07-24 09:45] VITALS: BP 149/84
[2017-07-24 10:15] VITALS: BP 149/84
--- NOTE | 2017-07-24 15:14 | Endo Procedure Record ---
Endo Procedure Report Date of Procedure Jul 24, 2017 Surgeon (s) LYSSA KEMP MD Post Procedure/Op Diagnosis Sigmoid diverticulosis Multiple polyps Procedure Performed Colonoscopy to cecum Snare polypectomy 4 Hot biopsy polypectomy 4 Description of Procedure Anesthesia Type: Conscious Sedation Specimen(s) collected/removed Colon polyps Description of the Procedure Indication for procedure: This gentleman came in for surveillance colonoscopy. He had undergone right hemicolectomy to manage a carcinoma, about 4 years ago. Informed consent was obtained after reviewing the procedure in detail. Description of the procedure: He was placed in left lateral decubitus position and his vital signs were monitored. Conscious sedation was achieved using Versed and fentanyl. Digital rectal examination was unremarkable. The colonoscope was then introduced in the rectum and advanced all the way up to the ileo-colic anastomosis. The quality of bowel preparation was rather sub-optimal The scope was then withdrawn slowly and the mucosa examined in a systematic fashion. Findings: 1. Diffuse sigmoid diverticulosis 2. Two, 4 mm pedunculated polyps, adjacent to each other at the sigmoid colon. This was snared and retrieved. 3. 2 mm polyps at the descending colon that were excised with hot biopsy forceps 4. 3 mm pedunculated polyp at the distal transverse colon that was snared and retrieved 5. 2 mm polyp at the anastomosis, that was excised with hot biopsy forceps. He tolerated the procedure well and was taken back to the nursing area in a stable condition. Impression: Surveillance colonoscopy. Multiple polyps excised. Recommend surveillance colonoscopy in one year. Copies To: DEMARCUS BRADY MD Copies To: ROBERT REYES XAVIER M MD Jul 24, 2017 3:14 pm
== END 2017-07-24 10:20 | disposition home or self-care (01) ==
LOC: ENDO 07:00
PROVIDERS: ATTEND Surgery
DX: Z08 Encounter for follow-up examination after completed treatment for malignant neoplasm (principal); D12.3 Benign neoplasm of transverse colon; D12.4 Benign neoplasm of descending colon; D12.0 Benign neoplasm of cecum; K57.30 Diverticulosis of large intestine without perforation or abscess without bleeding; Z85.038 Personal history of other malignant neoplasm of large intestine; I25.10 Atherosclerotic heart disease of native coronary artery without angina pectoris; I10 Essential (primary) hypertension

== ENCOUNTER 2017-09-26 13:47 | Outpatient (RCR) | payer OTHER | END 2017-09-26 15:27 | disposition home or self-care (01) | PROVIDERS: ATTEND Neurological Surgery | DX: M46.1 Sacroiliitis, not elsewhere classified (principal); M54.9 Dorsalgia, unspecified; Z48.89 Encounter for other specified surgical aftercare ==

== ENCOUNTER → 2018-05-21 | Outpatient (CLI) | payer MEDICARE, OTHER ==
[~2018-05-21] MED LIST changes: +ACHD5005 PO; -HYDR-3812 PO; +TRAZ-190 PO; -TRAZ100T92 PO
--- NOTE | 2018-05-21 15:38 | Diagnostic Imaging Report ---
INDICATION: Left breast lump. COMPARISON: No prior mammograms are available for comparison. TECHNIQUE: Bilateral 2D and 3D diagnostic mammography was performed with CAD. FINDINGS: There is some increased density in the retroareolar left breast which has the appearance of gynecomastia. A discrete mass is not seen. There are no suspicious calcifications. There are benign calcifications scattered throughout both breasts. IMPRESSION: A left breast retroareolar density is suggestive of gynecomastia. Even so, further evaluation with ultrasound is recommended. ACR BI-RADS Category 0: Incomplete. (Needs additional imaging evaluation). Result letter will be mailed to the patient. Note: At least 10% of breast cancer is not imaged by mammography. Dictated by: Dictated on workstation # [id number]
--- NOTE | 2018-05-21 15:42 | Diagnostic Imaging Report ---
INDICATION: Left breast retroareolar lump. TECHNIQUE: Sonographic interrogation of the retroareolar regions of both breasts was performed. FINDINGS: There is some ill-defined hypoechogenicity in the retroareolar left breast. This has the appearance of gynecomastia. This does correlate with the findings on mammography. The retroareolar right breast is unremarkable. No mass is seen. IMPRESSION: There is some ill-defined hypoechogenicity in the retroareolar left breast. The features are most suggestive of gynecomastia. Continued clinical followup is recommended to confirm stability. If symptoms persist, consideration could always be given to performance of a biopsy. ACR BI-RADS Category 2: Benign findings. Dictated by: Dictated on workstation # [id number]
== END ==
LOC: RAD 14:09
DX: N63.42 Unspecified lump in left breast, subareolar (principal)
CPT/HCPCS: 76642

== ENCOUNTER 2020-01-07 14:15 | Outpatient (RCR) | payer MEDICARE, OTHER ==
[2019-12-03 11:44] VITALS: BP 164/77
--- NOTE | 2019-12-03 12:15 | NUR ---
VANCOMYCIN DOSING: LOADING DOSE 2,000 MG ON 12/03/19 MAIN DOSE 1,500 MG IV BID @ TROUGH DUE 12/05/19 @ 07:00 Addendum: 12/09/19 at 0739 by PADMINI [facility] JACOB HU ORDERED VANCOMYCIN & LINEZOLID. ZENAIDA SPOKE TO DR. BRADY AND GOT THE LINEZOLID DC'D
[2019-12-04 08:05] VITALS: BP 154/67
[2019-12-04] MEDS: VANCOMYCIN 1500 MG/NS 500 ML IVPB IV SCH ×4 (08:15→19:59)
[2019-12-04 22:20] VITALS: BP 152/75
[2019-12-05 08:15] VITALS: BP 145/76
[2019-12-05] MEDS: VANCOMYCIN 1500 MG/NS 500 ML IVPB IV SCH ×4 (08:35→20:36)
[2019-12-05 08:51] LABS: BUN/CREATININE RATIO 20; CALCIUM 8.6 MG/DL (8.5-10.1); CARBON DIOXIDE 27 MMOL/L (21-32); CHLORIDE 105 MMOL/L (98-107); CREATININE SERUM 0.79 MG/DL (0.60-1.30); GFR ESTIMATED > 60; GLUCOSE 97 MG/DL (70-105); POTASSIUM 3.7 MMOL/L (3.6-5.0); SODIUM 140 MMOL/L (135-145)
[2019-12-05 08:59] LABS: VANCOMYCIN,TROUGH 12.2 UG/ML (10.0-20.0)
--- NOTE | 2019-12-05 09:44 | NUR ---
PTD VANCOMYCIN LABS: SCR 0.79 TROUGH LEVEL (PRIOR TO 4TH DOSE) 12.2 PLAN: CONTINUE WITH CURRENT DOSING (VANCOMYCIN 1,500MG IV Q12H)
[2019-12-05 22:55] VITALS: BP_SYST 195; BP_SYST 203; BP_DIAS 86; BP_DIAS 89
[2019-12-06 08:13] VITALS: BP 153/81
[2019-12-06] MEDS: CATHETER FLUSH 10 ML SYR IV PRN (08:24)
[2019-12-06] MEDS: VANCOMYCIN 1500 MG/NS 500 ML IVPB IV SCH ×4 (08:24→20:14)
[2019-12-07 01:01] VITALS: BP 138/66
[2019-12-07 08:51] VITALS: BP 134/67
[2019-12-07] MEDS: VANCOMYCIN 1500 MG/NS 500 ML IVPB IV SCH ×4 (08:51→20:41)
--- NOTE | 2019-12-07 20:35 | NUR ---
PATIENT ARRIVED TO UNIT FOR OUTPATIENT ANTIBIOTIC THERAPY. T:37.0; P:61; RR:20; BP:172/84; O2:95% RA. RIGHT UPPER ARM PICC ASSESSED AND PATENCY CONFIRMED. IV VANCOMYCIN STARTED.
--- NOTE | 2019-12-07 22:45 | NUR ---
Patient left floor via ambulatory, accompanied by staff. Education provided. Patient demonstrates understanding of instructions.
[2019-12-08] MEDS: VANCOMYCIN 1500 MG/NS 500 ML IVPB IV SCH ×4 (08:39→20:19)
[2019-12-08] MEDS: CATHETER FLUSH 10 ML SYR IV PRN ×2 (08:39→20:19)
[2019-12-08 09:45] VITALS: BP_SYST 122; BP_SYST 169; BP_DIAS 74; BP_DIAS 80
[2019-12-08 20:19] VITALS: BP 148/68
[2019-12-09] MEDS: VANCOMYCIN 1500 MG/NS 500 ML IVPB IV SCH ×4 (08:22→20:48)
[2019-12-09] MEDS: CATHETER FLUSH 10 ML SYR IV PRN (08:22)
[2019-12-09 08:32] VITALS: BP 153/82
[2019-12-09 20:51] VITALS: BP 179/82
[2019-12-10] MEDS: CATHETER FLUSH 10 ML SYR IV PRN (08:14)
[2019-12-10] MEDS: VANCOMYCIN 1500 MG/NS 500 ML IVPB IV SCH ×2 (08:14)
--- NOTE | 2019-12-10 08:15 | NUR ---
PATIENT INFORMED THIS RN THAT HE HAS APPOINTMENT WITH DR. BRADY TODAY AND WILL KEEP PICC LINE UNTIL ASSESSED BY . THIS RN INFORMED PATIENT TO HAVE OFFICE FAX ORDER'S TO EITHER HAVE PICC REMOVED OR CONTINUE WITH TREATMENT WITH NEW ANTIBIOTIC ORDERS.
[2019-12-10 08:21] VITALS: BP 153/77
[2019-12-11] MEDS: VANCOMYCIN 1500 MG/NS 500 ML IVPB IV SCH ×4 (08:54→20:09)
[2019-12-11 10:41] VITALS: BP 142/67
[2019-12-11] MEDS: CATHETER FLUSH 10 ML SYR IV PRN (20:12)
[2019-12-11 22:22] VITALS: BP 172/86
[2019-12-12] MEDS: VANCOMYCIN 1500 MG/NS 500 ML IVPB IV SCH ×4 (10:00→20:24)
[2019-12-12 10:04] VITALS: BP 137/74
[2019-12-12 10:06] VITALS: BP 137/74
[2019-12-12] MEDS: CATHETER FLUSH 10 ML SYR IV PRN (20:24)
[2019-12-12 20:30] VITALS: BP 184/93
[2019-12-13 08:30] VITALS: BP 151/5
[2019-12-13 08:49] VITALS: BP 151/75
[2019-12-13 09:02] LABS: BUN/CREATININE RATIO 16; CALCIUM 8.7 MG/DL (8.5-10.1); CARBON DIOXIDE 26 MMOL/L (21-32); CHLORIDE 104 MMOL/L (98-107); CREATININE SERUM 0.86 MG/DL (0.60-1.30); GFR ESTIMATED > 60; GLUCOSE 110 MG/DL (70-105); POTASSIUM 3.6 MMOL/L (3.6-5.0); SODIUM 139 MMOL/L (135-145)
[2019-12-13 09:10] LABS: VANCOMYCIN,TROUGH 18.4 UG/ML (10.0-20.0)
--- NOTE | 2019-12-13 09:10 | NUR ---
THIS RN PHONED PHARMACY AND INQUIRED ABOUT VANCO TROUGH BEING DRAWN AND THAT ANTIBIOTIC WAS TUBED TO US AND IF WE WERE SUPPOSE TO INFUSE OR WAIT FOR TROUGH LEVEL. PADMINI PHARMACIST INFORMED TO INFUSE LONG TROUGH HAS BEEN DRAWN.
[2019-12-13] MEDS: VANCOMYCIN 1500 MG/NS 500 ML IVPB IV SCH ×4 (09:15→20:40)
[2019-12-13 20:30] VITALS: BP 169/78
[2019-12-14] MEDS: VANCOMYCIN 1500 MG/NS 500 ML IVPB IV SCH ×4 (08:22→20:15)
[2019-12-14] MEDS: CATHETER FLUSH 10 ML SYR IV PRN (08:22)
[2019-12-14 08:29] VITALS: BP 172/80
[2019-12-14 20:10] VITALS: BP 138/73
[2019-12-15 08:00] VITALS: BP 140/68
[2019-12-15] MEDS: VANCOMYCIN 1500 MG/NS 500 ML IVPB IV SCH ×4 (08:21→20:10)
[2019-12-15] MEDS: CATHETER FLUSH 10 ML SYR IV PRN (08:21)
[2019-12-15 20:10] VITALS: BP 138/86
[2019-12-16] MEDS: CATHETER FLUSH 10 ML SYR IV PRN ×2 (08:43→10:53)
[2019-12-16] MEDS: VANCOMYCIN 1500 MG/NS 500 ML IVPB IV SCH ×4 (08:46→21:52)
[2019-12-16 10:55] VITALS: BP 174/80
--- NOTE | 2019-12-16 20:15 | NUR ---
PATIENT ARRIVED TO UNIT FOR OUTPATIENT ANTIBIOTIC THERAPY. T:36.9; P:69; RR:20; BP:166/72; O2:96% RA.
--- NOTE | 2019-12-16 21:50 | NUR ---
FIRST DYER MIXED AND BROUGHT VANCOMYCIN 1500/500. WAS NOT IN OUR REFRIGERATORS. PICC LINE INSPECTED, PATENCY VERIFIED AND VANCOMYCIN INFUSION STARTED AT THIS TIME.
[2019-12-17 08:25] VITALS: BP 158/76
[2019-12-17] MEDS: VANCOMYCIN 1500 MG/NS 500 ML IVPB IV SCH ×4 (08:39→20:23)
[2019-12-17] MEDS: CATHETER FLUSH 10 ML SYR IV PRN (20:24)
[2019-12-17 22:35] VITALS: BP 176/80
[2019-12-18 08:20] VITALS: BP 152/78
[2019-12-18] MEDS: VANCOMYCIN 1500 MG/NS 500 ML IVPB IV SCH ×4 (08:37→20:06)
[2019-12-18] MEDS: CATHETER FLUSH 10 ML SYR IV PRN (20:07)
[2019-12-18 20:08] VITALS: BP 178/87
[2019-12-19 08:30] VITALS: BP 168/74
[2019-12-19] MEDS: VANCOMYCIN 1500 MG/NS 500 ML IVPB IV SCH ×6 (08:32→20:05)
[2019-12-19 20:00] VITALS: BP 163/4
--- NOTE | 2019-12-20 09:05 | NUR ---
VANC TROUGH DRAWN FROM PICC PER PROTOCOL. PHONE PHARMACY TO INQUIRE ABOUT STARTING VANCOMYCIN DOSE PRIOR TO RESULTS, OK TO START VANCOMYCIN INFUSION PER CECIL IN PHARMACY.
[2019-12-20] MEDS: VANCOMYCIN 1500 MG/NS 500 ML IVPB IV SCH ×2 (09:13)
[2019-12-20 09:33] VITALS: BP 142/80
--- NOTE | 2019-12-20 09:35 | NUR ---
VANC TROUGH RESULTS OBTAINED, VANCOMYCIN INFUSION STOPPED WHICH RAN FOR A TOTAL OF 22 MINUTES AT 257 ML/HR. PHARMACY CALLED AND NOTIFIED, AND THIS RN TOLD THAT PHARMACIST IS TO CALL BACK WITH FURTHER ORDERS ON PLAN OF CARE R/T INFUSION. PT RESTING IN RECLINER, DENIES NEEDS OR ANY C/O. WILL CONTINUE TO MONITOR.
--- NOTE | 2019-12-20 09:50 | NUR ---
PHONE CALL RECEIVED FROM CECIL IN PHARMACY AND NEW ORDERS THAT PT TO HOLD VANC DOSE TONIGHT, AND TO HAVE A REPEAT VANC TROUGH COMPLETED IN THE AM 12/21/19. PT NOTIFIED OF PLAN AND VERBALIZES UNDERSTANDING. WILL RETURN 12/21/19 AT 0800.
[2019-12-21 08:20] VITALS: BP 175/89
--- NOTE | 2019-12-21 09:29 | NUR ---
Repeat trough level, 9.9. Re-start Vancomycin @ 2gm over 2 hours every 24 hours.
[2019-12-21] MEDS: VANCOMYCIN 2000 MG/NS 500 ML IVPB IV SCH ×2 (09:40)
[2019-12-22] MEDS: VANCOMYCIN 2000 MG/NS 500 ML IVPB IV SCH ×2 (08:17)
[2019-12-22 08:18] VITALS: BP 141/77
[2019-12-23] MEDS: CATHETER FLUSH 10 ML SYR IV PRN ×2 (08:21→10:30)
[2019-12-23] MEDS: VANCOMYCIN 2000 MG/NS 500 ML IVPB IV SCH ×2 (08:23)
[2019-12-23 10:32] VITALS: BP 142/73
[2019-12-24] MEDS: VANCOMYCIN 2000 MG/NS 500 ML IVPB IV SCH ×2 (08:25)
[2019-12-24] MEDS: CATHETER FLUSH 10 ML SYR IV PRN (08:25)
[2019-12-24 08:43] VITALS: BP 147/76
[2019-12-25 08:17] VITALS: BP 157/72
[2019-12-25] MEDS: VANCOMYCIN 2000 MG/NS 500 ML IVPB IV SCH ×2 (08:28)
[2019-12-26] MEDS: VANCOMYCIN 2000 MG/NS 500 ML IVPB IV SCH ×2 (08:26)
[2019-12-26 08:29] VITALS: BP 157/77
--- NOTE | 2019-12-27 09:02 | NUR ---
PHARMACY TO DOSE IV VANCO CONTINUE FOR 1 WEEK: CONTINUED DOSE OF 2G Q24H FOR 7 MORE DAYS STARTING 12/26 @0900, WILL RECHECK TROUGH ON 12/27 @ 0800; VANCOMYCIN TROUGH DUE 12/27 @ 0800, IF TROUGH >20 NOTIFY PHARMACY
[2019-12-27] MEDS: VANCOMYCIN 2000 MG/NS 500 ML IVPB IV SCH ×2 (09:05)
[2019-12-27 11:31] VITALS: BP 148/72
[2019-12-28 08:19] VITALS: BP 157/78
[2019-12-28] MEDS: VANCOMYCIN 2000 MG/NS 500 ML IVPB IV SCH ×2 (09:04)
--- NOTE | 2019-12-28 11:13 | NUR ---
Patient's infusion completed, PICC line flushed with 20cc Normal Saline. Patient left SDC via ambulatory and unaccompanied.
[2019-12-29] MEDS: VANCOMYCIN 2000 MG/NS 500 ML IVPB IV SCH ×2 (08:14)
[2019-12-29 10:17] VITALS: BP 163/78
[2019-12-30] MEDS: CATHETER FLUSH 10 ML SYR IV PRN (08:36)
[2019-12-30] MEDS: VANCOMYCIN 2000 MG/NS 500 ML IVPB IV SCH ×2 (08:36)
[2019-12-30 10:48] VITALS: BP 159/74
[2019-12-31 08:07] VITALS: BP 161/84
[2019-12-31] MEDS: CATHETER FLUSH 10 ML SYR IV PRN ×2 (08:34→10:48)
[2019-12-31] MEDS: VANCOMYCIN 2000 MG/NS 500 ML IVPB IV SCH ×2 (08:36)
[2020-01-01] MEDS: VANCOMYCIN 2000 MG/NS 500 ML IVPB IV SCH ×2 (08:40)
[2020-01-01] MEDS: CATHETER FLUSH 10 ML SYR IV PRN (08:40)
[2020-01-01 10:55] VITALS: BP 151/81
[2020-01-02 08:40] VITALS: BP 141/76
[2020-01-02] MEDS: CATHETER FLUSH 10 ML SYR IV PRN (08:44)
[2020-01-02] MEDS: VANCOMYCIN 2000 MG/NS 500 ML IVPB IV SCH ×2 (08:44)
[2020-01-02 09:07] LABS: BUN/CREATININE RATIO 18; CALCIUM 8.4 MG/DL (8.5-10.1); CARBON DIOXIDE 27 MMOL/L (21-32); CHLORIDE 105 MMOL/L (98-107); CREATININE SERUM 0.98 MG/DL (0.60-1.30); GFR ESTIMATED > 60; GLUCOSE 124 MG/DL (70-105); POTASSIUM 3.6 MMOL/L (3.6-5.0); SODIUM 140 MMOL/L (135-145)
[~2020-01-07] VITALS: Ht 165.1 cm; Wt 75.0 kg
[~2020-01-07 14:15] MED LIST changes: +ACHYD1T PO; +ASPI-586 PO; -HYDR-3820 PO; +MELO7.5T46 PO; +NS IV 1000 ML 1,000 ML IV ONE; +NS IV 1000 ML 1,000 ML ONE; +NS IV 500 ML 500 ML ONE; +SIMV20TA26 PO; -SIMV20TA3 PO; -TRAZ-190 PO; +TRAZ-227 PO; +TROUGH ORDER-PHARMACY XX NR; +VANCOMYCIN 1000 MG/VIAL ONE; +VANCOMYCIN 1500 MG/NS 500 ML IVPB IV SCH; +VANCOMYCIN 2000 MG/NS 500 ML IVPB IV NR; +VANCOMYCIN 500 MG/VIAL IV ONE
[2020-01-07 14:30] VITALS: BP 141/76
== END 2020-01-07 14:30 | disposition home or self-care (01) ==
LOC: SDC 14:15
PROVIDERS: ATTEND Nurse Practitioner Family
DX: L03.116 Cellulitis of left lower limb (principal); L02.416 Cutaneous abscess of left lower limb
CPT/HCPCS: 36415; 36569; 76937; 80048; 80202; 96365; 96366; 96368; 99211

== ENCOUNTER 2020-07-09 13:38 | Emergency (ER) | payer MEDICARE, OTHER ==
[~2020-07-09] VITALS: Ht 165 cm; Wt 75.5 kg
[~2020-07-09 13:38] MED LIST changes: -NS IV 1000 ML 1,000 ML IV ONE; -NS IV 1000 ML 1,000 ML ONE; -NS IV 500 ML 500 ML ONE; -PANT40TA3 PO; +PANT40TA52 PO; -TROUGH ORDER-PHARMACY XX NR; -VANCOMYCIN 1000 MG/VIAL ONE; -VANCOMYCIN 1500 MG/NS 500 ML IVPB IV SCH; -VANCOMYCIN 2000 MG/NS 500 ML IVPB IV NR; -VANCOMYCIN 500 MG/VIAL IV ONE
[2020-07-09 13:59] LABS: BASOPHILS % (AUTO) 1 % (0-10); EOSINOPHILS # (AUTO) 0.1 10^3/uL (0.0-0.3); EOSINOPHILS % (AUTO) 1 % (0-10); HEMATOCRIT 42 % (40-54); HEMOGLOBIN 14.3 g/dL (13.3-17.7); LYMPHOCYTES # (AUTO) 0.9 10^3/uL (1.0-4.0); LYMPHOCYTES % (AUTO) 14 % (12-44); MEAN CORPUSCULAR HEMOGLOBIN 32 pg (25-34); MEAN CORPUSCULAR HGB CONC 34 g/dL (32-36); MEAN CORPUSCULAR VOLUME 94 fL (80-99); MEAN PLATELET VOLUME 10.8 fL (9.0-12.2); MONOCYTES # (AUTO) 0.5 10^3/uL (0.0-1.0); MONOCYTES % (AUTO) 9 % (0-12); NEUTROPHILS # (AUTO) 4.6 10^3/uL (1.8-7.8); NEUTROPHILS % (AUTO) 75 % (42-75); PLATELET COUNT 170 10^3/uL (130-400); WHITE BLOOD COUNT 6.1 10^3/uL (4.3-11.0)
[2020-07-09] MEDS ORDERED: ASPIRIN 81 MG CHEW (CHILDREN'S ASA) PO ONE (14:00)
[2020-07-09 14:09] LABS: ALBUMIN 4.1 GM/DL (3.2-4.5); CHLORIDE 104 MMOL/L (98-107); POTASSIUM 3.8 MMOL/L (3.6-5.0); SODIUM 139 MMOL/L (135-145)
[2020-07-09 14:10] LABS: CALCIUM 8.7 MG/DL (8.5-10.1)
[2020-07-09 14:11] LABS: GLUCOSE 124 MG/DL (70-105); PROTHROMBIN TIME PATIENT 13.8 SEC (12.2-14.7)
[2020-07-09 14:12] LABS: TOTAL PROTEIN 6.8 GM/DL (6.4-8.2)
[2020-07-09 14:13] LABS: BILIRUBIN,TOTAL 0.6 MG/DL (0.1-1.0); CARBON DIOXIDE 24 MMOL/L (21-32)
[2020-07-09 14:15] LABS: ALKALINE PHOSPHATASE 71 U/L (40-136); CREATININE SERUM 0.94 MG/DL (0.60-1.30); GFR ESTIMATED > 60
[2020-07-09 14:16] LABS: BUN/CREATININE RATIO 20
[2020-07-09 14:18] LABS: ALANINE AMINOTRANSFERASE 17 U/L (0-55); MAGNESIUM 1.9 MG/DL (1.6-2.4)
--- NOTE | 2020-07-09 15:04 | Diagnostic Imaging Report ---
EXAMINATION: Portable erect AP chest at 02:37 p.m. INDICATION: Chest pain. FINDINGS: The heart size is within normal limits and the heart does seem less prominent than noted on the prior exam of 01/15/2013. The sternotomy wires and surgical clips noted previously are again evident and no different. The lungs are clear. There is no sign of failure, pneumonia, or pleural effusion. The mediastinum is not widened. The osseous structures are intact. IMPRESSION: There is evidence of prior cardiac surgery but there is no sign of an acute cardiopulmonary abnormality. Dictated by: Dictated on workstation # [id number]
--- NOTE | 2020-07-09 15:39 | NUR ---
PT'S UPDATED BY PHONE
--- NOTE | 2020-07-09 16:06 | ED Chest Pain ---
General Chief Complaint: Chest Pain Stated Complaint: CHEST PAIN/HIGH BLOOD PRESSURE Nursing Triage Note: ARRIVED VIA AMB TO ROOM 06 WITHOUT DIFFICULTY. COMPLAINS OF CHEST PAIN AFTER EATING LUNCH THAT STARTED AT 1310 AND AND LASTED APPX 5 MINS. Nursing Sepsis Screen: No Definite Risk Source: patient Exam Limitations: no limitations History of Present Illness Date Seen by Provider: Jul 09, 2020 Time Seen by Provider: 13:35 Initial Comments This 79-year-old gentleman with known coronary artery disease presents to the emergency room with complaints of brief chest pain that started around 13:15 and had resolved prior to arrival. Pain radiated to his back. He denies any other associated symptoms. He has history of CABG performed by Dr. Luna at [facility]. His primary coding analyst is Dr. Romo. Allergies and Home Medications Allergies Coded Allergies: Iodinated Contrast- Oral and IV Dye (Unverified Allergy, Severe, ANAPHYLAXIS, 07/18/14) LIPS SWELLED, THROAT SWELLED, HIVES ON FACE morphine (Verified Allergy, Intermediate, RASH, 05/16/12) Home Medications Aspirin 81 Mg Tablet.dr, 81 MG PO DAILY, (Reported) Dutasteride/Tamsulosin HCl 1 Each Cpmp.24hr, 1 EACH PO DAILY, (Reported) Gabapentin 300 Mg Capsule, 300 MG PO BID, (Reported) Hydrocodone Bit/Acetaminophen 1 Each Tablet, 1 EACH PO HS, (Reported) Meloxicam 7.5 Mg Tablet, 7.5 MG PO DAILY, (Reported) Nebivolol HCl 10 Mg Tab, 10 MG PO DAILY, (Reported) Pantoprazole Sodium 40 Mg Tablet.dr, 40 MG PO DAILY, (Reported) Simvastatin 20 Mg Tablet, 20 MG PO HS, (Reported) Trazodone HCl 100 Mg Tablet, 100 MG PO HS, (Reported) Patient Home Medication List Home Medication List Reviewed: Yes Review of Systems Review of Systems Constitutional: no symptoms reported EENTM: No Symptoms Reported Respiratory: No Symptoms Reported Cardiovascular: See HPI Gastrointestinal: No Symptoms Reported Genitourinary: No Symptoms Reported Musculoskeletal: no symptoms reported Skin: no symptoms reported Psychiatric/Neurological: No Symptoms Reported Endocrine: No Symptoms Reported Hematologic/Lymphatic: No Symptoms Reported Past Cfkixom-Yzmofa-Shnnbk Hx Past Med/Social Hx: Reviewed Nursing Past Med/Soc Hx Patient Social History Recent Foreign Travel: No Contact w/Someone Who Travel: No Recent Infectious Disease Expo: No Recent Hopitalizations: No Immunizations Up To Date Tetanus Booster (TDap): Unknown Seasonal Allergies Seasonal Allergies: No Past Medical History Surgeries: Yes (TESTICULE SX, COLON RESECTION, BACK X2) Abdominal, Bowel Surgery, CABG, Orthopedic Respiratory: No Currently Using CPAP: No Currently Using BIPAP: No Cardiac: Yes (open heart surgery 04/26) Coronary Artery Disease, Hypertension Neurological: No Reproductive Disorders: No Sexually Transmitted Disease: No HIV/AIDS: No Genitourinary: No Gastrointestinal: Yes (COLON CANCER, GASTRITIS?) Ulcer Musculoskeletal: Yes Arthritis, Chronic Back Pain, Fractures Endocrine: No HEENT: No Loss of Vision: Denies Hearing Impairment: Denies Cancer: Yes Colon Psychosocial: No Integumentary: No (OILY SKIN) Blood Disorders: No Physical Exam Vital Signs Vital Signs - First Documented 07/09/20 13:38 Temp 37.0 Pulse 67 Resp 16 B/P (MAP) 192/93 (126) Pulse Ox 93 O2 Delivery Room Air Capillary Refill : Less Than 3 Seconds Height, Weight, BMI Height: 5'6.00" Weight: 168lbs. 0.0oz. 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 Norm as Tested Skin: Normal Color, Warm/Dry Progress/Results/Core Measures Results/Orders Lab Results Laboratory Tests Test 07/09/20 13:45 07/09/20 17:14 Range/Units White Blood Count 6.1 4.3-11.0 10^3/uL Red Blood Count 4.48 4.30-5.52 10^6/uL Hemoglobin 14.3 13.3-17.7 g/dL Hematocrit 42 40-54 % Mean Corpuscular Volume 94 80-99 fL Mean Corpuscular Hemoglobin 32 25-34 pg Mean Corpuscular Hemoglobin Concent 34 32-36 g/dL Red Cell Distribution Width 11.8 10.0-14.5 % Platelet Count 170 130-400 10^3/uL Mean Platelet Volume 10.8 9.0-12.2 fL Immature Granulocyte % (Auto) 0 % Neutrophils (%) (Auto) 75 42-75 % Lymphocytes (%) (Auto) 14 12-44 % Monocytes (%) (Auto) 9 0-12 % Eosinophils (%) (Auto) 1 0-10 % Basophils (%) (Auto) 1 0-10 % Neutrophils # (Auto) 4.6 1.8-7.8 10^3/uL Lymphocytes # (Auto) 0.9 L 1.0-4.0 10^3/uL Monocytes # (Auto) 0.5 0.0-1.0 10^3/uL Eosinophils # (Auto) 0.1 0.0-0.3 10^3/uL Basophils # (Auto) 0.0 0.0-0.1 10^3/uL Immature Granulocyte # (Auto) 0.0 0.0-0.1 10^3/uL Prothrombin Time 13.8 12.2-14.7 SEC INR Comment 1.0 0.8-1.4 Activated Partial Thromboplast Time 28 24-35 SEC Sodium Level 139 135-145 MMOL/L Potassium Level 3.8 3.6-5.0 MMOL/L Chloride Level 104 98-107 MMOL/L Carbon Dioxide Level 24 21-32 MMOL/L Anion Gap 11 5-14 MMOL/L Blood Urea Nitrogen 19 H 7-18 MG/DL Creatinine 0.94 0.60-1.30 MG/DL Estimat Glomerular Filtration Rate > 60 BUN/Creatinine Ratio 20 Glucose Level 124 H 70-105 MG/DL Calcium Level 8.7 8.5-10.1 MG/DL Corrected Calcium 8.6 8.5-10.1 MG/DL Magnesium Level 1.9 1.6-2.4 MG/DL Total Bilirubin 0.6 0.1-1.0 MG/DL Aspartate Amino Transf (AST/SGOT) 17 5-34 U/L Alanine Aminotransferase (ALT/SGPT) 17 0-55 U/L Alkaline Phosphatase 71 40-136 U/L Myoglobin 56.8 10.0-92.0 NG/ML Troponin I < 0.028 < 0.028 <0.028 NG/ML Total Protein 6.8 6.4-8.2 GM/DL Albumin 4.1 3.2-4.5 GM/DL My Orders Orders - GILMA LAFLEUR MD Cbc With Automated Diff (07/09/20 13:50) Magnesium (07/09/20 13:50) Chest 1 View, Ap/Pa Only (07/09/20 13:50) Ekg Tracing (07/09/20 13:50) Comprehensive Metabolic Panel (07/09/20 13:50) Myoglobin Serum (07/09/20 13:50) Protime With Inr (07/09/20 13:50) Partial Thromboplastin Time (07/09/20 13:50) O2 (07/09/20 13:50) Monitor-Rhythm Ecg Trace Only (07/09/20 13:50) Lipid Panel (07/10/20 06:00) Ed Iv/Invasive Line Start (07/09/20 13:50) Troponin I (07/09/20 13:50) Aspirin Chewable Tablet (Baby Aspirin Ch (07/09/20 14:00) Troponin I (07/09/20 17:15) Ekg Tracing (07/09/20 17:15) Medications Given in ED Current Medications Medications Dose Ordered Sig/Jeff Route Start Time Stop Time Status Last Admin Dose Admin Aspirin 243 mg ONCE ONCE PO 07/09/20 14:00 07/09/20 14:01 DC 07/09/20 14:16 243 MG Vital Signs/I&O 07/09/20 13:38 Temp 37.0 Pulse 67 Resp 16 B/P (MAP) 192/93 (126) Pulse Ox 93 O2 Delivery Room Air Blood Pressure Mean: 126 Progress Progress Note : Time: 18:11 Progress Note Patient remained free of chest pain throughout his ER stay. Repeat EKG showed no dynamic changes. Troponin drawn 4 hours from time of onset of symptoms was also negative. Patient had labile blood pressure throughout his ER visit. Blood pressure tended to be elevated when staff was in the room and normal when staff was out of the room. I advised him to have his blood pressure checked again in the outpatient setting. Return precautions were discussed. The importance of following up with Dr. Romo and Dr. Brady was stressed. EKG #1: EKG Time: 13:39 Rate: 65 Rhythm: Normal Sinus Intervals: Normal ECG Impression: Normal Comment Normal sinus rhythm with no ST elevation or depression. LVH noted. No abnormal intervals. EKG #2: EKG Time: 17:23 Rate: 62 Rhythm: Normal Sinus Intervals: Normal ECG Impression: Normal Comment Normal sinus rhythm with no ST elevation or depression. No abnormal intervals or axis deviation. Diagnostic Imaging Diagonstic Imaging: Xray Plain Films/CT/US/NM/MRI: chest Comments NAME: DELVIN OLIVA [facility] REC#: [id number] PT STATUS: REG ER : 1940 PHYSICIAN: GILMA LAFLEUR MD ADMIT DATE: 07/09/20/ER Draft Date of Exam:07/09/20 CHEST 1 VIEW, AP/PA ONLY EXAMINATION: Portable erect AP chest at 02:37 p.m. INDICATION: Chest pain. FINDINGS: The heart size is within normal limits and the heart does seem less prominent than noted on the prior exam of 01/15/2013. The sternotomy wires and surgical clips noted previously are again evident and no different. The lungs are clear. There is no sign of failure, pneumonia, or pleural effusion. The mediastinum is not widened. The osseous structures are intact. IMPRESSION: There is evidence of prior cardiac surgery but there is no sign of an acute cardiopulmonary abnormality. Dictated on workstation # [id number] Dict: 07/09/20 1457 Trans: 07/09/20 1503 [id number] Interpreted by: ALEX QUEEN MD Departure Impression Primary Impression: Chest pain Qualified Codes: R07.9 - Chest pain, unspecified Additional Impressions: Coronary artery disease Qualified Codes: I25.10 - Atherosclerotic heart disease of gray[place] coronary artery without angina pectoris Labile hypertension Disposition: 01 HOME, SELF-CARE Condition: Improved Departure-Patient Inst. Decision time for Depature: 18:04 Referrals: DEMARCUS BRADY MD (PCP/Family) Primary Care Physician Patient Instructions: Chest Pain Add. Discharge Instructions: Continue taking your medications as previously prescribed. Place a phone call to Dr. Romo's office first thing in the morning for follow- up instructions. Also present to either Dr. Brady's office or Dr. Romo's office for a blood pressure check tomorrow. Return to the emergency room if you have recurrent chest pain or other worsening symptoms. All discharge instructions reviewed with patient and/or family. Voiced understanding. Copy Copies To 1: DEMARCUS BRADY MD Copies To 2: JEFFERY ROMO MD FACP [facility] GILMA LAFLEUR MD Jul 09, 2020 16:06
--- NOTE | 2020-07-09 17:45 | NUR ---
IN ROOM TAKLING TO THE PT AT THIS TIME.
[2020-07-09 18:10] VITALS: BP 182/86
== END 2020-07-09 18:09 | disposition home or self-care (01) ==
LOC: EDUNIT# 13:38 → ER 13:42
DX: I25.10 Atherosclerotic heart disease of native coronary artery without angina pectoris (principal); I10 Essential (primary) hypertension; G89.29 Other chronic pain; M54.9 Dorsalgia, unspecified; Z91.041 Radiographic dye allergy status; Z88.5 Allergy status to narcotic agent; Z79.82 Long term (current) use of aspirin; Z95.1 Presence of aortocoronary bypass graft; Z85.038 Personal history of other malignant neoplasm of large intestine
CPT/HCPCS: 36415; 71045; 80053; 83735; 83874; 84484; 85025; 85610; 85730; 93005; 93041

== ENCOUNTER → 2020-07-13 | Outpatient (CLI) | payer MEDICARE, OTHER | LOC: CARD 12:00 | PROVIDERS: ATTEND Internal Medicine Cardiovascular Disease | DX: I11.9 Hypertensive heart disease without heart failure (principal); I25.10 Atherosclerotic heart disease of native coronary artery without angina pectoris; I65.29 Occlusion and stenosis of unspecified carotid artery; E78.5 Hyperlipidemia, unspecified | CPT/HCPCS: 93306 ==

== ENCOUNTER → 2020-07-14 | Outpatient (CLI) | payer MEDICARE, OTHER ==
[~2020-07-14] VITALS: Ht 165 cm; Wt 76.0 kg
[~2020-07-14] MED LIST changes: +CATHETER FLUSH 10 ML SYR IV PRN; +REGADENOSON 0.4 MG/5 ML SYR (LEXISCAN) IV ONE
--- NOTE | 2020-07-14 20:21 | STRESS TEST ---
DATE OF SERVICE: 07/14/2020 RESTING AND POST REGADENOSON TECHNETIUM-99M TETROFOSMIN SPECT CT IMAGING CLINICAL DIAGNOSES: Coronary artery disease. ORDERING PHYSICIAN: Dr. Romo. PRIMARY PHYSICIAN: Dr. Solis. CLINICAL DIAGNOSIS: Baseline images were carried out after injection of 10.53 mCi of technetium-99m Tetrofosmin. This was followed by 0.4 mg regadenoson and 30.6 mCi of technetium-99m Tetrofosmin for stress imaging. The electrocardiogram showed sinus rhythm at baseline. It did not change significantly with regadenoson infusion. Review of images at rest and following stress indicates a small to moderate sized lateral perfusion defect that is predominantly fixed. Gated images show localized lateral wall hypokinesis. Left ventricular ejection fraction is calculated to be 59%. Left ventricular end diastolic volume is 89 mL. TID is absent (1.04). CONCLUSIONS: 1. This study is indicative of a small- to moderate-sized lateral wall infarction without significant ischemia. 2. Localized lateral wall hypokinesis. 3. Well preserved global left ventricular systolic function with a calculated ejection fraction of 59%. Job ID: [id number] DocumentID: [id number] Dictated Date: 07/14/2020 16:13:00 Large Engine Assembler Date: 07/14/2020 20:19:53 Dictated By: JEFFERY ROMO MD, MA, FACP, FACC, MTDD
== END ==
LOC: CARD 12:00
PROVIDERS: ATTEND Internal Medicine Cardiovascular Disease
DX: I25.10 Atherosclerotic heart disease of native coronary artery without angina pectoris (principal); I65.23 Occlusion and stenosis of bilateral carotid arteries; E78.49 Other hyperlipidemia; I11.9 Hypertensive heart disease without heart failure
CPT/HCPCS: 78452; 93017; A9502

== ENCOUNTER 2020-10-15 12:17 | Emergency (ER) | payer MEDICARE, OTHER ==
[~2020-10-15] VITALS: Ht 167 cm; Wt 74.0 kg
[~2020-10-15 12:17] MED LIST changes: -CATHETER FLUSH 10 ML SYR IV PRN; -REGADENOSON 0.4 MG/5 ML SYR (LEXISCAN) IV ONE
--- NOTE | 2020-10-15 12:38 | ED General ---
General Stated Complaint: CHEST PAINS Source of Information: Patient Exam Limitations: No Limitations History of Present Illness Date Seen by Provider: Oct 15, 2020 Time Seen by Provider: 12:36 Initial Comments To ER with sharp left anterior lower chest pain that began about 30 minutes ago at noon. It lasted for about 3 minutes before resolving on its own. No fevers or chills or shortness of breath. Does have a history of CABG. Pain is still gone but given his history he was worried. Timing/Duration: 1-2 Days Severity: Moderate Allergies and Home Medications Allergies Coded Allergies: Iodinated Contrast Media (Unverified Allergy, Severe, ANAPHYLAXIS, 07/18/14) LIPS SWELLED, THROAT SWELLED, HIVES ON FACE morphine (Verified Allergy, Intermediate, RASH, 05/16/12) Home Medications Aspirin 81 Mg Tablet.dr, 81 MG PO DAILY, (Reported) Dutasteride/Tamsulosin HCl 1 Each Cpmp.24hr, 1 EACH PO DAILY, (Reported) Gabapentin 300 Mg Capsule, 300 MG PO BID, (Reported) Hydrocodone Bit/Acetaminophen 1 Each Tablet, 1 EACH PO HS, (Reported) Meloxicam 7.5 Mg Tablet, 7.5 MG PO DAILY, (Reported) Nebivolol HCl 10 Mg Tab, 10 MG PO DAILY, (Reported) Pantoprazole Sodium 40 Mg Tablet.dr, 40 MG PO DAILY, (Reported) Simvastatin 20 Mg Tablet, 20 MG PO HS, (Reported) Trazodone HCl 100 Mg Tablet, 100 MG PO HS, (Reported) Patient Home Medication List Home Medication List Reviewed: Yes Review of Systems Review of Systems Constitutional: see HPI EENTM: see HPI Respiratory: no symptoms reported; No cough, No dyspnea on exertion Cardiovascular: see HPI, chest pain; No Hx of Intervention, No palpitations Genitourinary: no symptoms reported Musculoskeletal: no symptoms reported Skin: no symptoms reported Psychiatric/Neurological: No Symptoms Reported Hematologic/Lymphatic: No Symptoms Reported Past Kcxngqz-Pjsosb-Nevamp Hx Patient Social History Recent Foreign Travel: No Contact w/Someone Who Travel: No Recent Hopitalizations: No Immunizations Up To Date Tetanus Booster (TDap): Unknown Seasonal Allergies Seasonal Allergies: No Past Medical History Surgeries: Yes (TESTICULE SX, COLON RESECTION, BACK X2) Abdominal, Bowel Surgery, CABG, Orthopedic Respiratory: No Currently Using CPAP: No Currently Using BIPAP: No Cardiac: Yes (open heart surgery 04/26) Coronary Artery Disease, Hypertension Neurological: No Reproductive Disorders: No Sexually Transmitted Disease: No HIV/AIDS: No Genitourinary: No Gastrointestinal: Yes (COLON CANCER, GASTRITIS?) Ulcer Musculoskeletal: Yes Arthritis, Chronic Back Pain, Fractures Endocrine: No HEENT: No Loss of Vision: Denies Hearing Impairment: Denies Cancer: Yes Colon Psychosocial: No Integumentary: No (OILY SKIN) Blood Disorders: No Physical Exam Vital Signs Capillary Refill : Height, Weight, BMI Height: 5'6.00" Weight: 168lbs. 0.0oz. 76.274705vy; 27.91 BMI Method:Stated General Appearance: No Apparent Distress, WD/WN, Other (Alert and oriented no distress) Eyes: Bilateral Eye Normal Inspection, Bilateral Eye PERRL, Bilateral Eye EOMI Neck: Full Range of Motion, Normal Inspection Respiratory: No Accessory Muscle Use, No Respiratory Distress Cardiovascular: Regular Rate, Rhythm, Normal Peripheral Pulses Gastrointestinal: Normal Bowel Sounds, Non Tender, Soft Extremity: Normal Capillary Refill, Normal Inspection Neurologic/Psychiatric: Alert, Oriented x3 Skin: Normal Color, Warm/Dry Progress/Results/Core Measures Suspected Sepsis SIRS Temperature: Pulse: Respiratory Rate: Laboratory Tests 10/15/20 12:30: White Blood Count 5.8 Blood Pressure / Mean: Laboratory Tests 10/15/20 12:30: Platelet Count 178 10/15/20 14:17: Creatinine 0.83, INR Comment 1.1, Total Bilirubin 0.7 Results/Orders Lab Results Laboratory Tests Test 10/15/20 12:30 10/15/20 14:17 Range/Units White Blood Count 5.8 4.3-11.0 10^3/uL Red Blood Count 4.48 4.30-5.52 10^6/uL Hemoglobin 14.6 13.3-17.7 g/dL Hematocrit 42 40-54 % Mean Corpuscular Volume 95 80-99 fL Mean Corpuscular Hemoglobin 33 25-34 pg Mean Corpuscular Hemoglobin Concent 34 32-36 g/dL Red Cell Distribution Width 11.8 10.0-14.5 % Platelet Count 178 130-400 10^3/uL Mean Platelet Volume 11.8 9.0-12.2 fL Immature Granulocyte % (Auto) 0 % Neutrophils (%) (Auto) 72 42-75 % Lymphocytes (%) (Auto) 16 12-44 % Monocytes (%) (Auto) 9 0-12 % Eosinophils (%) (Auto) 2 0-10 % Basophils (%) (Auto) 1 0-10 % Neutrophils # (Auto) 4.2 1.8-7.8 10^3/uL Lymphocytes # (Auto) 0.9 L 1.0-4.0 10^3/uL Monocytes # (Auto) 0.5 0.0-1.0 10^3/uL Eosinophils # (Auto) 0.1 0.0-0.3 10^3/uL Basophils # (Auto) 0.0 0.0-0.1 10^3/uL Immature Granulocyte # (Auto) 0.0 0.0-0.1 10^3/uL B-Type Natriuretic Peptide 22.7 <100.0 PG/ML Prothrombin Time 14.3 12.2-14.7 SEC INR Comment 1.1 0.8-1.4 Activated Partial Thromboplast Time 29 24-35 SEC Sodium Level 139 135-145 MMOL/L Potassium Level 4.2 3.6-5.0 MMOL/L Chloride Level 104 98-107 MMOL/L Carbon Dioxide Level 27 21-32 MMOL/L Anion Gap 8 5-14 MMOL/L Blood Urea Nitrogen 19 H 7-18 MG/DL Creatinine 0.83 0.60-1.30 MG/DL Estimat Glomerular Filtration Rate > 60 BUN/Creatinine Ratio 23 Glucose Level 94 70-105 MG/DL Calcium Level 8.6 8.5-10.1 MG/DL Corrected Calcium 8.8 8.5-10.1 MG/DL Magnesium Level 2.0 1.6-2.4 MG/DL Total Bilirubin 0.7 0.1-1.0 MG/DL Aspartate Amino Transf (AST/SGOT) 16 5-34 U/L Alanine Aminotransferase (ALT/SGPT) 17 0-55 U/L Alkaline Phosphatase 65 40-136 U/L Myoglobin 58.8 10.0-92.0 NG/ML Troponin I < 0.028 <0.028 NG/ML Total Protein 6.4 6.4-8.2 GM/DL Albumin 3.8 3.2-4.5 GM/DL My Orders Orders - CHARLIE DINH DROP WIRE ALIGNER Cbc With Automated Diff (10/15/20 12:31) Magnesium (10/15/20 12:31) Chest 1 View, Ap/Pa Only (10/15/20 12:31) Ekg Tracing (10/15/20 12:31) Comprehensive Metabolic Panel (10/15/20 12:31) Myoglobin Serum (10/15/20 12:31) Protime With Inr (10/15/20 12:31) Partial Thromboplastin Time (10/15/20 12:31) O2 (10/15/20 12:31) Monitor-Rhythm Ecg Trace Only (10/15/20 12:31) Lipid Panel (10/16/20 06:00) Ed Iv/Invasive Line Start (10/15/20 12:31) BNP (10/15/20 12:31) Troponin I (10/15/20 12:31) Aspirin Chewable Tablet (Baby Aspirin Ch (10/15/20 12:45) Troponin I (10/15/20 14:30) Medications Given in ED Current Medications Medications Dose Ordered Sig/Jeff Route Start Time Stop Time Status Last Admin Dose Admin Aspirin 324 mg ONCE ONCE PO 10/15/20 12:45 10/15/20 12:46 DC 10/15/20 13:00 324 MG Vital Signs/I&O Capillary Refill : Departure Communication (Admissions) Initial troponin did not get drawn so actually the time of the first troponin was 2.5 hours after symptom onset. Again, his symptoms only lasted for about 2 or 3 minutes and have been absent ever since. Impression Primary Impression: Left-sided chest pain Additional Impression: Coronary artery disease Disposition: 01 HOME, SELF-CARE Condition: Stable Departure-Patient Inst. Decision time for Depature: 15:26 Referrals: DEMARCUS BRADY MD (PCP/Family) Primary Care Physician Patient Instructions: Chest Pain Add. Discharge Instructions: 1. Return to ER for any concerns 2. Follow-up with your doctor next week 3. CHARLIE DINH APRN Oct 15, 2020 12:38
[2020-10-15 12:39] LABS: BASOPHILS % (AUTO) 1 % (0-10); EOSINOPHILS # (AUTO) 0.1 10^3/uL (0.0-0.3); EOSINOPHILS % (AUTO) 2 % (0-10); HEMATOCRIT 42 % (40-54); HEMOGLOBIN 14.6 g/dL (13.3-17.7); LYMPHOCYTES # (AUTO) 0.9 10^3/uL (1.0-4.0); LYMPHOCYTES % (AUTO) 16 % (12-44); MEAN CORPUSCULAR HEMOGLOBIN 33 pg (25-34); MEAN CORPUSCULAR HGB CONC 34 g/dL (32-36); MEAN CORPUSCULAR VOLUME 95 fL (80-99); MEAN PLATELET VOLUME 11.8 fL (9.0-12.2); MONOCYTES # (AUTO) 0.5 10^3/uL (0.0-1.0); MONOCYTES % (AUTO) 9 % (0-12); NEUTROPHILS # (AUTO) 4.2 10^3/uL (1.8-7.8); NEUTROPHILS % (AUTO) 72 % (42-75); PLATELET COUNT 178 10^3/uL (130-400); WHITE BLOOD COUNT 5.8 10^3/uL (4.3-11.0)
[2020-10-15] MEDS ORDERED: ASPIRIN 81 MG CHEW (CHILDREN'S ASA) PO ONE (12:45)
--- NOTE | 2020-10-15 13:34 | Diagnostic Imaging Report ---
EXAMINATION: Portable erect AP chest at 0119 hours. INDICATION: Chest pain. FINDINGS: The heart size is within normal limits and stable when compared to 07/09/2020. The sternotomy wires and surgical clips noted previously are again evident and no different. As noted on the prior exam there are few carotid bronchovascular markings in the right infrahilar region. The lungs seem generally clear. There is no evidence for failure, pneumonia or for a pleural effusion. The mediastinum is not widened. The osseous structures are intact. IMPRESSION: There is no evidence for active disease. Dictated by: Dictated on workstation # [id number]
--- NOTE | 2020-10-15 13:44 | NUR ---
CONT TO REST IN BED NO CO OF CHEST PAIN
[2020-10-15 14:33] LABS: ALBUMIN 3.8 GM/DL (3.2-4.5); CHLORIDE 104 MMOL/L (98-107); POTASSIUM 4.2 MMOL/L (3.6-5.0); SODIUM 139 MMOL/L (135-145)
[2020-10-15 14:34] LABS: CALCIUM 8.6 MG/DL (8.5-10.1)
[2020-10-15 14:35] LABS: GLUCOSE 94 MG/DL (70-105); TOTAL PROTEIN 6.4 GM/DL (6.4-8.2)
[2020-10-15 14:36] LABS: CARBON DIOXIDE 27 MMOL/L (21-32)
[2020-10-15 14:37] LABS: BILIRUBIN,TOTAL 0.7 MG/DL (0.1-1.0)
[2020-10-15 14:39] LABS: ALKALINE PHOSPHATASE 65 U/L (40-136); CREATININE SERUM 0.83 MG/DL (0.60-1.30); GFR ESTIMATED > 60
[2020-10-15 14:40] LABS: BUN/CREATININE RATIO 23
[2020-10-15 14:42] LABS: ALANINE AMINOTRANSFERASE 17 U/L (0-55)
[2020-10-15 14:50] LABS: INR 1.1 (0.8-1.4); PROTHROMBIN TIME PATIENT 14.3 SEC (12.2-14.7)
[2020-10-15 15:43] VITALS: BP 145/84
== END 2020-10-15 15:50 | disposition home or self-care (01) ==
LOC: EDUNIT# 12:17 → ER 12:21
DX: R07.9 Chest pain, unspecified (principal); I25.10 Atherosclerotic heart disease of native coronary artery without angina pectoris; G89.29 Other chronic pain; M54.9 Dorsalgia, unspecified; I10 Essential (primary) hypertension; Z85.038 Personal history of other malignant neoplasm of large intestine; Z88.5 Allergy status to narcotic agent; Z91.041 Radiographic dye allergy status; Z95.1 Presence of aortocoronary bypass graft; Z79.82 Long term (current) use of aspirin; Z79.891 Long term (current) use of opiate analgesic
CPT/HCPCS: 36415; 71045; 80053; 83735; 83874; 83880; 84484; 85025; 85610; 85730; 93041

== ENCOUNTER → 2020-11-30 | Outpatient (CLI) | payer MEDICARE, OTHER | LOC: LABNPT 07:20 | PROVIDERS: ATTEND Emergency Medicine | DX: Z01.812 Encounter for preprocedural laboratory examination (principal); Z20.822 Contact with and (suspected) exposure to COVID-19 | CPT/HCPCS: 87635 ==

== ENCOUNTER → 2020-11-30 | Outpatient (CLI) | payer MEDICARE, OTHER ==
--- NOTE | 2020-11-30 12:02 | Diagnostic Imaging Report ---
PROCEDURE: CT abdomen and pelvis without contrast. TECHNIQUE: Multiple contiguous axial images were obtained through the abdomen and pelvis without the use of intravenous contrast. Auto Exposure Controls were utilized during the CT exam to meet ALARA standards for radiation dose reduction. INDICATION: Prostate cancer. FINDINGS: The previous CT abdomen/pelvis exam of 02/24/2016 failed to show any sign of an acute abnormality. There is no clear evidence for metastatic disease related to the patient's diagnosis of colon cancer evident. On this study, there is an 11.2 mm rounded area of low density in the left lobe of the liver. This finding was also present on the prior exam at which time it measured 8.7 mm. I suspect that this is a cyst which has slightly increased in size since the prior exam. If further study is desired, then ultrasound would be recommended. The liver is otherwise homogeneous. The spleen, pancreas, adrenals, gallbladder,, aorta, and inferior vena cava seem similar to the prior exam;. There is no evidence for an acute abnormality. In the interval since the prior exam of 3 mm nonobstructive calculus has developed in the right kidney. The kidneys are otherwise unremarkable. The stomach is not well-distended and consequently difficult to assess. As noted on the prior exam, there has been a prior right hemicolectomy. There is no sign of a mass in the region of the anastomosis. There is no pelvic mass or free fluid collection identified. As seen on the prior exam, there are innumerable diverticula involving the sigmoid and descending colon but there is no sign of acute diverticulitis. The urinary bladder is grossly unremarkable. The prostate gland is at the upper limits of normal in size measuring just at 5 cm in maximum transverse diameter. The prostate gland is similar in appearance to the prior study. The bone windows show no sign of a fracture or of a destructive lesion. In the interval since the prior study, however, the patient has undergone a laminectomy and fusion at L4-L5. There is fairly severe degenerative disc and bony disease at L1-L2 and L2-L3. These findings are similar to the prior exam. The lung bases are clear. IMPRESSION: 1. There is no acute abnormality of the abdomen or pelvis. 2. The prostate gland is at the upper limits of normal in size and seems similar to the prior study. There is no evidence for metastatic skeletal disease. If further study for osseous metastatic lesions is desired, however, then a Nuclear Medicine bone scan would be recommended. 3. There has been interval laminectomy and fusion at L4-L5. 4. There is a small nonobstructive calculus within the right kidney. Dictated by: Dictated on workstation # [id number]
== END ==
LOC: RAD 11:11
PROVIDERS: ATTEND Urology
DX: C61 Malignant neoplasm of prostate (principal); M43.26 Fusion of spine, lumbar region; N20.0 Calculus of kidney; Z98.890 Other specified postprocedural states
CPT/HCPCS: 74176

== ENCOUNTER → 2020-12-08 | Outpatient (CLI) | payer MEDICARE, OTHER ==
--- NOTE | 2020-12-08 16:05 | Diagnostic Imaging Report ---
EXAMINATION: Whole body bone scan. INDICATION: Prostate carcinoma. TECHNIQUE/COMPARISON: This study was performed following the administration of 23.8 mCi of 99M technetium MDP. Anterior and posterior whole body images were obtained. Lateral spot films of the skull and thorax were also performed. There are no prior Nuclear Medicine studies available for comparison. The CT abdomen/pelvis exam performed on 11/30/2020 failed to show any sign of metastatic disease. FINDINGS: On this study, there are several small focal areas of increased activity involving the spine. This includes a small lesion on the left at approximately T3 and another lesion on the right at T4. There is also slightly increased activity within both pedicles at L1 and in the left pedicle of L4. There is also a more prominent area of increased uptake in the L3 vertebral body. In addition, there is a prominent area of slightly increased uptake involving the greater trochanter of the right femur. There is also an asymmetrically prominent area of uptake involving the sternoclavicular joint on the right. All of these findings are suspicious for metastatic disease. There is also generalized activity involving both shoulder joints and the right knee joint, consistent with degenerative disease. There is a total knee prosthesis in place on the left. Both kidneys do show excretion of the radiotracer. IMPRESSION: 1. There are multiple areas of abnormal uptake involving the spine and right femur. These findings are worrisome for metastatic disease. 2. There is no acute bony abnormality identified. Dictated by: Dictated on workstation # [id number]
== END ==
LOC: CARD 12:00
PROVIDERS: ATTEND Urology
DX: C61 Malignant neoplasm of prostate (principal)
CPT/HCPCS: 78306; A9503

== ENCOUNTER 2020-12-14 05:31 | Outpatient (RCR) | payer MEDICARE, OTHER ==
[~2020-12-14] VITALS: Ht 165.1 cm; Wt 74.9 kg
[~2020-12-14 05:31] MED LIST changes: +FINA5TAB6 PO; +GABA300C PO; +MTP100TCR PO
== END 2020-12-14 10:50 | disposition home or self-care (01) ==
LOC: PREOP 05:31
PROVIDERS: ATTEND Surgery
DX: Z01.818 Encounter for other preprocedural examination (principal); Z12.11 Encounter for screening for malignant neoplasm of colon; Z20.822 Contact with and (suspected) exposure to COVID-19
CPT/HCPCS: 87635

== ENCOUNTER 2020-12-16 08:59 | Day surgery (SDC) | payer MEDICARE, OTHER ==
--- NOTE | 2020-12-15 09:49 | HISTORY AND PHYSICAL ---
DATE OF SERVICE: DATE OF ADMISSION: 12/16/2020. ATTENDING PHYSICIAN: Javy Solis MD. HISTORY OF PRESENT ILLNESS: The patient is a 79-year-old male, who was referred over to us in need of a colonoscopy. He reports his last colonoscopy was five years ago, which he does report was normal. He does have a history of colon cancer that was diagnosed in 2012. He did undergo a colon resection. He reports that he did undergo followup colonoscopies for 3 years. Since that time, he denies any blood in his stool as well as no family history of any colon cancer. He denies any diarrhea, constipation or any abdominal pain. PAST MEDICAL HISTORY: Colon cancer, coronary artery disease, degenerative joint disease, hypertension, hypercholesterolemia, and BPH. PAST SURGICAL HISTORY: Laparotomy with colon resection in 2012, coronary artery bypass graft x4 vessel bypass 04/2012, L3, L4 and L5 fusion, and left total knee replacement in 2014. ALLERGIES: MORPHINE. MEDICATIONS: Finasteride 5 mg, metoprolol 100 mg, Meloxicam 15 mg, tamsulosin 0.4 mg, simvastatin 20 mg, trazodone 100 mg, and gabapentin 300 mg. SOCIAL HISTORY: Negative for smoke. Negative for alcohol. FAMILY HISTORY: Mother, hypertension and myocardial infarction. Brother, brain cancer. REVIEW OF SYSTEMS: A well-nourished male in no acute distress. He is not experiencing any shortness of breath or difficulty breathing. No chest pain, palpitations or diaphoresis. No nausea, vomiting or abdominal pain. No diarrhea or constipation. No red blood per rectum. No dark tarry stools. No fever or chills. No recent inadvertent weight loss. All other review of systems is negative. PHYSICAL EXAMINATION: VITAL SIGNS: Blood pressure is 161/71. Current weight is 154 pounds at 5 feet 5 inches. CHEST: Clear. Good breath sounds bilaterally. HEART: Regular and no murmurs. EXTREMITIES: No lower extremity edema. Negative Homans sign. HEENT: No scleral icterus. NECK: No cervical lymphadenopathy. ABDOMEN: Soft, nontender, and nondistended. SKIN: Warm, dry and pink. NEUROLOGIC: Awake, alert and oriented x3. ASSESSMENT AND PLAN: A 79-year-old male with a personal history of colon cancer, who is in need of a screening colonoscopy. The risks and benefits of the procedure as well as the procedure and home care instructions were explained to the patient. The patient verbalized understanding of instructions and agrees to proceed as planned. At this time, we will proceed with scheduling him for a screening colonoscopy. Job ID: [id number] DocumentID: [id number] Dictated Date: 12/15/2020 09:18:04 Rehabilitation Physician Date: 12/15/2020 09:48:06 Dictated By: DEREK CLARKE
[~2020-12-16] VITALS: Ht 165.1 cm; Wt 74.9 kg
[~2020-12-16 08:59] MED LIST changes: +LACTATED RINGERS 1,000 ML IV ONE
[2020-12-16] MEDS ORDERED: LACTATED RINGERS 1,000 ML IV STA (09:06)
[2020-12-16] MEDS ORDERED: LIDOCAINE JELLY 2% 6 ML SYRINGE MM PRN (09:15)
[2020-12-16 09:36] VITALS: BP 138/73
[2020-12-16] MEDS ORDERED: LIDOCAINE JELLY 2% 6 ML SYRINGE ONE (09:44)
[2020-12-16] MEDS ORDERED: MIDAZOLAM 2 MG/2 ML (VERSED) VIAL ONE ×2 (10:07→10:11)
[2020-12-16] MEDS ORDERED: PROPOFOL INJECTION 50 ML IV ONE ×2 (10:07→10:51)
--- NOTE | 2020-12-16 10:22 | Progress Note-Pre Operative ---
Pre-Operative Progress Note H&P Reviewed The H&P was reviewed, patient examined and no changes noted. Date Seen by Provider: Dec 16, 2020 Time Seen by Provider: 09:30 Date H&P Reviewed: Dec 16, 2020 Time H&P Reviewed: 09:30 Pre-Operative Diagnosis: hx colon cancer POLA RHODES MD Dec 16, 2020 10:22
--- NOTE | 2020-12-16 10:24 | Discharge Inst-Surgical ---
D/C Lap Instructions-MEAGAN Follow Up Activity as tolerated High Fiber Diet 25g or more per day Avoid Alcohol, Caffeine, Spicy [place] and Acid foods. Drink 64 fluid oz or more of fluids per day. Symptoms to Report: Fever over 101 degree F, Nausea/Vomiting If any problems/questions: Contact your physician or go to Emergency Room POLA RHODES MD Dec 16, 2020 10:23
[2020-12-16] MEDS ORDERED: ACETAMINOPHEN 325 MG TABLET PO PRN (10:30)
[2020-12-16] MEDS ORDERED: HYDROcodone/APAP 5 MG/325 MG (LORTAB) TAB PO PRN (10:30)
[2020-12-16] MEDS ORDERED: ONDANSETRON 4 MG/2 ML (SDV) Z0FRAN IVP PRN (10:30)
[2020-12-16 11:12] VITALS: BP 117/59
--- NOTE | 2020-12-16 11:14 | Progress Note-Post Operative ---
Post-Operative Progess Note Surgeon (s)/Plunger Shovel Operator (s) Surgeon POLA RHODES MD Plunger Shovel Operator: none Pre-Operative Diagnosis hx colon cancer Post-Operative Diagnosis mild chronic stage 2 ext and int hemorrhoids, moderate sigmoid diverticulosis, small HP proximal and distal sigmoid. Procedure & Operative Findings Date of Procedure 12/16/20 Procedure Performed/Findings colonoscopy with bx. Anesthesia Type mac Estimated Blood Loss Estimated blood loss (mL): minimal Specimens/Packing Specimens Removed sigmoid polyp x2 POLA RHODES MD Dec 16, 2020 11:14
[2020-12-16 11:17] VITALS: BP 115/56
[2020-12-16 11:20] VITALS: BP 123/58
[2020-12-16 11:50] VITALS: BP 144/63
[2020-12-16 12:15] VITALS: BP 144/63
--- NOTE | 2020-12-16 12:24 | Anesthesia-General Post-Op ---
MAC Patient Condition Mental Status/LOC: Same as Preop Cardiovascular: Satisfactory Nausea/Vomiting: Absent Respiratory: Satisfactory Pain: Controlled Complications: Absent Post Op Complications Complications None Follow Up Care/Instructions Patient Instructions None needed. Anesthesiology Discharge Order Discharge Order Patient is doing well, no complaints, stable vital signs, no apparent adverse anesthesia problems. No complications reported per nursing. EUSEBIO ALBA CRNA Dec 16, 2020 12:24
--- NOTE | 2020-12-16 14:10 | OPERATIVE REPORT ---
DATE OF SERVICE: 12/16/2020 ATTENDING PRIMARY CARE PHYSICIAN: Dr. Javy Solis. PREOPERATIVE DIAGNOSIS: Personal history of colon cancer. POSTOPERATIVE DIAGNOSES: Mild chronic stage II external and internal hemorrhoids, moderate sigmoid diverticulosis. Two small polyps, one proximal and one distal sigmoid colon, both 2 mm in size. Normal ileocolonic anastomosis with no recurrent lesions. PROCEDURES PERFORMED: Colonoscopy with biopsy. SURGEON: Pola Rhodes MD. ANESTHESIA: Monitored anesthesia care. ESTIMATED BLOOD LOSS: Minimal. FINDINGS: Mild chronic stage II external and internal hemorrhoids, moderate sigmoid diverticulosis. Two small polyps, one proximal and one distal sigmoid colon, both 2 mm in size. Normal ileocolonic anastomosis with no recurrent lesions. DISPOSITION: The patient tolerated the procedure well. INDICATIONS FOR PROCEDURE: The patient is a 79-year-old male in need of a screening colonoscopy. His last colonoscopy was approximately five years ago and he reports that to be normal. He was diagnosed with colon cancer in 2012 and underwent a right hemicolectomy and did undergo followup colonoscopies yearly, which were normal until the point he reached the five-year span. He does not report any red blood per rectum nor any dark tarry stools. DESCRIPTION OF PROCEDURE: The patient was brought to the endoscopy suite and laid in the left lateral decubitus position. After adequate IV pain and sedative medications and monitored anesthesia care, a digital rectal examination was performed, which revealed chronic stage II external and internal hemorrhoids, not actively edematous nor inflamed and no bleeding. Normal sphincter tone was felt and there were no palpable masses. Prostate gland was palpable and appeared normal. The endoscope was then intubated and anus and rectum gently insufflated. The endoscope was then advanced through the valves of Zelaya of the rectum with no polyps or any neoplasms identified. There was moderate sigmoid diverticulosis identified and there were also two small hyperplastic appearing polyps, one at the proximal and one distal sigmoid colon. Both were biopsied and destroyed using forceps and electrocautery with visualization of good hemostasis. The endoscope was then advanced in the remainder of the descending and transverse colon to the ileocolonic anastomosis, which was widely patent and no recurrent lesions identified. The endoscope was then slowly withdrawn while taking a second look and suctioning of residual air with no additional findings. The patient tolerated the procedure well. We will recommend continued medical management with a high fiber diet with at least 30 grams of fiber daily as well as significant amounts of water to promote soft stools on a daily basis. He does not need another colonoscopy in another five years; however, sooner if he becomes symptomatic. Job ID: [id number] DocumentID: [id number] Dictated Date: 12/16/2020 11:10:29 Wet End Helper Date: 12/16/2020 14:09:44 Dictated By: POLA RHODES MD
== END 2020-12-16 12:22 | disposition home or self-care (01) ==
LOC: ENDO 08:59
PROVIDERS: ATTEND Surgery
DX: Z12.11 Encounter for screening for malignant neoplasm of colon (principal); K63.5 Polyp of colon; K64.1 Second degree hemorrhoids; K57.30 Diverticulosis of large intestine without perforation or abscess without bleeding; I10 Essential (primary) hypertension; I25.10 Atherosclerotic heart disease of native coronary artery without angina pectoris; E78.00 Pure hypercholesterolemia, unspecified; N40.0 Benign prostatic hyperplasia without lower urinary tract symptoms; Z79.899 Other long term (current) drug therapy; Z91.041 Radiographic dye allergy status; Z88.5 Allergy status to narcotic agent; Z85.038 Personal history of other malignant neoplasm of large intestine; Z80.8 Family history of malignant neoplasm of other organs or systems
CPT/HCPCS: 88305

== ENCOUNTER → 2021-01-13 | Outpatient (CLI) | payer MEDICARE, OTHER ==
[~2021-01-13] MED LIST changes: +GADOBUTROL 7.5 MMOL/7.5 ML (GADAVIST) VIAL IV ONE; -LACTATED RINGERS 1,000 ML IV ONE
--- NOTE | 2021-01-13 16:36 | Diagnostic Imaging Report ---
EXAM: MRI right femur without and with intravenous contrast. DATE: January 13, 2021. INDICATION: 80-year-old male, right leg pain. History of colon and prostate cancer. COMPARISON: Nuclear Medicine whole body bone scan December 08, 2020. TECHNIQUE: Multiple pre and post contrast MRI sequences at the level of the femur were obtained. FINDINGS: There is a lobulated predominantly low signal lesion in the distal femoral diaphysis within the intramedullary cavity measuring 2.0 x 1.4 cm in axial dimension and 6.0 cm in craniocaudal extent. There is no pathognomonic double line sign of osteonecrosis. The lesion is not clearly a cartilage matrix lesion. There does appear to be mild internal enhancement. The lesion does extend towards the cortex. There is no additional identified bone lesion. There is no large hip joint effusion. There is no large knee joint effusion. There is very limited evaluation at the level of the hip and knee joints given the large ucsny-qd-hjri of imaging as well as artifact present. There is unremarkable intramuscular signal. There is a left knee prosthesis. IMPRESSION: Lobulated predominantly low signal lesion involving the right distal femoral diaphysis which has very faint radiotracer uptake on the recent comparison Nuclear Medicine bone scan of December 08, 2020. This does not have pathognomonic signal changes of a bone infarct and is not definitely a cartilage matrix lesion on MRI assessment. Dedicated small hcvkv-td-mgag CT right femur without contrast is recommended for further assessment of the lesion. Differential diagnostic considerations at the time would include a bone metastasis or a benign bone lesion. Dictated by: Dictated on workstation # [id number]
--- NOTE | 2021-01-13 16:39 | Diagnostic Imaging Report ---
CLINICAL INDICATION: Patient with history of colon cancer in 2013 and recent diagnosis of prostate cancer. Patient had recent bone scan and CT scanning. EXAM: MRI of the lumbar spine performed without and with 7 mL of Gadavist IV contrast. Sequences include sagittal T2, sagittal T1, sagittal T2 fat-sat, axial T2, axial T1, sagittal T1 fat-sat post IV contrast and axial T1. COMPARISON: MRI of the lumbar spine without contrast dated 12/20/2016. FINDINGS: There are interval postoperative changes with L4-L5 posterior lumbar interbody fusion and L3-L5 laminectomy. There is a small fluid collection involving the posterior laminectomy region at the L4-L5 region which measures 1.7 cm x 4.8 cm x 4.0 cm (AP x Trans x CC). There is peripherally displaced appearance of the cauda equina nerve roots seen at the L4-L5 level which may be seen with type II arachnoiditis. This finding has progressed in the interim. Otherwise, the remainder of the visualized distal thoracic spinal cord, conus medullaris, and cauda equina nerve roots are unremarkable. Conus medullaris tip is seen at the L1-L2 disk space region. There are Modic type I degenerative signal changes involving the L1-L2, and L2-L3 endplates. There are minimal Modic type II degenerative signal changes involving the L2-L3 level. Besides the degenerative changes, there is no other significant paraspinal soft tissue abnormality. There is vascular ectasia of the distal abdominal aorta measuring grossly 2.8 cm in greatest axial dimension. There are hypertrophic spurs seen throughout the lumbar spine and lower lumbar spine facet arthropathy. T11-T12: There is progression of a diffuse disk bulge with superimposed small anterior disk herniation. There is mild left facet arthropathy and zvuw-rr-lditdqhs right facet arthropathy. There is no significant neural foramen narrowing. There is progression of now moderate central canal stenosis. T12-L1: There is interval progression of a diffuse disk bulge with now uhhsfymp-tv-rtiavv loss of disk space height. There is progression of superimposed anterior and posterior disk herniations. There is mild bilateral facet arthropathy. There is moderate central canal stenosis which has progressed. There is mild left neural foramen narrowing and dxfm-tv-zauqpfmr right neural foramen narrowing which has progressed. L1-L2: There is interval progression of grade 1 retrolisthesis of L1 on L2 which is now roughly 4 mm compared to the prior study of roughly 2-3 mm. There is progression of diffuse disk bulge with now severe loss of disk space height and endplate irregularity. There is moderate bilateral facet arthropathy seen. There is kbil-cz-zrhlwdke central canal stenosis which has slightly progressed. There is severe left neural foramen narrowing and llmhiecw-ef-aojukb right neural foramen narrowing which has progressed. L2-L3: There is no significant change to the grade 1 retrolisthesis of L2 on L3. There is a diffuse disk bulge with severe loss of disk space height and endplate irregularity. There are disk spurs extending into the foraminal regions bilaterally which have slightly progressed. There is progression of severe right facet arthropathy/hypertrophy and moderate left facet arthropathy. There is wsom-jz-sxsvopeo central canal narrowing again noted. There is severe bilateral neural foramen narrowing (right side more than the left), which has progressed in the interim. L3-L4: There is stable grade 1 retrolisthesis of L3 on L4. There is a diffuse disk bulge with moderate loss of disk space height which has progressed. There is progression of disk spurs extending into the foraminal regions bilaterally. There is interval decompression of thecal sac or resolution of previously seen central canal narrowing. There is severe bilateral neural foramen narrowing which is stable on the right and progressed on the left. L4-L5: Interval discectomy changes with interbody fusion of disk spacer. There is resolution of previously seen central canal stenosis. There is stable moderate left neural foramen narrowing and mild right neural foramen narrowing. L5-S1: There is a stable small posterior disk bulge. There is moderate bilateral facet arthropathy/hypertrophy. 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 There is no significant central canal stenosis. There is hwlu-xb-vtaufnlf right neural foramen narrowing and moderate left neural foramen narrowing which has slightly progressed. IMPRESSION: 1: There are interval postoperative changes with L4-L5 posterior lumbar interbody fusion with L3-L5 laminectomies. There is a small fluid collection in the posterior lumbar laminectomy region which causes no significant encroachment upon the central canal. There is interval decompression of the thecal sac at the L3-L5 levels compared to prior study. 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 Dictated by: Dictated on workstation # [id number]
== END ==
LOC: RAD 13:53
PROVIDERS: ATTEND Urology
DX: C61 Malignant neoplasm of prostate (principal); M89.8X6 Other specified disorders of bone, lower leg; M47.814 Spondylosis without myelopathy or radiculopathy, thoracic region; M47.816 Spondylosis without myelopathy or radiculopathy, lumbar region; M47.817 Spondylosis without myelopathy or radiculopathy, lumbosacral region; M51.24 Other intervertebral disc displacement, thoracic region; M51.26 Other intervertebral disc displacement, lumbar region; M51.27 Other intervertebral disc displacement, lumbosacral region; M51.34 Other intervertebral disc degeneration, thoracic region; M51.36 Other intervertebral disc degeneration, lumbar region; M51.37 Other intervertebral disc degeneration, lumbosacral region; M48.04 Spinal stenosis, thoracic region; M48.061 Spinal stenosis, lumbar region without neurogenic claudication; M48.07 Spinal stenosis, lumbosacral region; Z98.1 Arthrodesis status; Z85.038 Personal history of other malignant neoplasm of large intestine; Z98.890 Other specified postprocedural states
CPT/HCPCS: 72158; 73720

== ENCOUNTER 2021-01-15 05:35 | Outpatient (CLI) | payer MEDICARE, OTHER ==
[~2021-01-15] VITALS: Ht 165.1 cm; Wt 74.9 kg
[~2021-01-15 05:35] MED LIST changes: -GADOBUTROL 7.5 MMOL/7.5 ML (GADAVIST) VIAL IV ONE
== END 2021-01-15 13:17 ==
LOC: PREOP 05:35
PROVIDERS: ATTEND Urology
DX: Z01.812 Encounter for preprocedural laboratory examination (principal); C61 Malignant neoplasm of prostate

== ENCOUNTER 2021-01-18 06:57 | Day surgery (SDC) | payer MEDICARE, OTHER ==
[2021-01-18] VITALS (11 sets, daily range): BP systolic 75–166; BP diastolic 35–82
[~2021-01-18] VITALS: Ht 165.1 cm; Wt 74.9 kg
[2021-01-18] MEDS ORDERED: fentaNYL INJ 100 MCG/2 ML AMP ONE (07:30)
[2021-01-18] MEDS ORDERED: MIDAZOLAM 2 MG/2 ML (VERSED) VIAL ONE (07:30)
[2021-01-18] MEDS ORDERED: cefTRIAXone FOR IV USE 1,000 MG in WATER (STERILE) FOR INJECTION 10 ML IV ONE (07:45)
[2021-01-18] MEDS ORDERED: LACTATED RINGERS 1,000 ML IV PRN (07:45)
--- NOTE | 2021-01-18 08:08 | Progress Note-Pre Operative ---
Pre-Operative Progress Note H&P Reviewed The H&P was reviewed, patient examined and no changes noted. Date Seen by Provider: Jan 18, 2021 Time Seen by Provider: 08:08 Date H&P Reviewed: Jan 18, 2021 Time H&P Reviewed: 08:08 Pre-Operative Diagnosis: CA PROSTATE LIZA HILL MD Jan 18, 2021 08:08
--- NOTE | 2021-01-18 08:09 | Progress Note-Post Operative ---
Post-Operative Progess Note Surgeon (s)/Wafer Polishing Worker (s) Surgeon LIZA HILL MD Wafer Polishing Worker: NONE Pre-Operative Diagnosis CA PROSTATE Post-Operative Diagnosis SAME Procedure & Operative Findings Date of Procedure 01/18/21 Procedure Performed/Findings PLACEMENT OF SPACE OAR Anesthesia Type GENERAL Estimated Blood Loss Estimated blood loss (mL): NONE Specimens/Packing Specimens Removed NONE Packing: NONE LIZA HILL MD Jan 18, 2021 08:09
--- NOTE | 2021-01-18 08:11 | Discharge Inst-Urology ---
Discharge Inst-Urology Reconcile Patient Problems Problems Reviewed?: Yes Final Diagnosis CA PROSTATE Patient Instructions/Follow Up Plan/Assessment/Instructions Please make appointment to been seen in office in 2 weeks. In 48 hours, if no bleeding, may resume ASA Increase oral fluids for 48 hours and then as needed. Diet and Activity as tolerated. If questions or concerns contact your physician Or seek help at emergency department. LIZA HILL MD Jan 18, 2021 08:11
[2021-01-18] MEDS ORDERED: LIDOCAINE PF 2% 5 ML (XYLOCAINE) VIAL ONE (08:21)
[2021-01-18] MEDS ORDERED: proPOfol 200 MG/20 ML (DIPRIVAN) VIAL IV ONE (08:21)
[2021-01-18] MEDS ORDERED: SEVOFLURANE (ULTANE) 15 ML INHAL SOLN ONE (08:21)
[2021-01-18] MEDS ORDERED: ONDANSETRON 4 MG/2 ML (SDV) Z0FRAN ONE (08:22)
[2021-01-18] MEDS ORDERED: TMSL.4C PO (08:45)
--- NOTE | 2021-01-18 08:54 | Anesthesia-General Post-Op ---
General Patient Condition Mental Status/LOC: Same as Preop Cardiovascular: Satisfactory Nausea/Vomiting: Absent Respiratory: Satisfactory Pain: Controlled Complications: Absent Post Op Complications Complications None Follow Up Care/Instructions Patient Instructions None needed. Anesthesia/Patient Condition Patient Condition Patient is doing well, no complaints, stable vital signs, no apparent adverse anesthesia problems. No complications reported per nursing. MARIAN LAUREN CRNA Jan 18, 2021 08:54
[2021-01-18] MEDS ORDERED: ONDANSETRON 4 MG/2 ML (SDV) Z0FRAN IVP PRN (09:00)
[2021-01-18] MEDS ORDERED: fentaNYL INJ 100 MCG/2 ML AMP IVP ONE (09:00)
[2021-01-18] MEDS ORDERED: CIPR-225 PO (09:17)
== END 2021-01-18 10:45 | disposition home or self-care (01) ==
LOC: SDC 06:57
PROVIDERS: ATTEND Urology
DX: C61 Malignant neoplasm of prostate (principal); I10 Essential (primary) hypertension; I25.10 Atherosclerotic heart disease of native coronary artery without angina pectoris; Z79.899 Other long term (current) drug therapy; Z88.5 Allergy status to narcotic agent; Z91.041 Radiographic dye allergy status; Z95.1 Presence of aortocoronary bypass graft
CPT/HCPCS: 55874; 87081; C1889

== ENCOUNTER → 2021-03-30 | Outpatient (RCR) | payer MEDICARE, OTHER ==
[~2021-03-30] MED LIST changes: +CIPR-225 PO; +TMSL.4C PO
== END | disposition home or self-care (01) ==
LOC: ONC 12-30 13:29
PROVIDERS: ATTEND Radiology Radiation Oncology
DX: C61 Malignant neoplasm of prostate (principal); I25.10 Atherosclerotic heart disease of native coronary artery without angina pectoris; I10 Essential (primary) hypertension; E78.5 Hyperlipidemia, unspecified; Z85.038 Personal history of other malignant neoplasm of large intestine; Z96.652 Presence of left artificial knee joint; Z98.890 Other specified postprocedural states; Z87.891 Personal history of nicotine dependence
CPT/HCPCS: 77300; 77301; 77334; 77336; 77338; 77385; 99204

== ENCOUNTER → 2021-04-28 | Outpatient (CLI) | payer MEDICARE, OTHER | LOC: LABNPT 09:02 | DX: Z20.822 Contact with and (suspected) exposure to COVID-19 (principal) | CPT/HCPCS: 87635 ==

== ENCOUNTER 2021-04-29 02:24 | Emergency (ER) | payer MEDICARE, OTHER ==
[~2021-04-29] VITALS: Ht 165.1 cm; Wt 65.0 kg
[2021-04-29] MEDS ORDERED: TRANEXAMIC ACID 100 MG/ML 10 ML INJECTION ONE (02:33)
[2021-04-29 02:51] LABS: BASOPHILS % (AUTO) 1 % (0-10); EOSINOPHILS # (AUTO) 0.2 10^3/uL (0.0-0.3); EOSINOPHILS % (AUTO) 5 % (0-10); HEMATOCRIT 37 % (40-54); HEMOGLOBIN 12.6 g/dL (13.3-17.7); LYMPHOCYTES # (AUTO) 0.5 10^3/uL (1.0-4.0); LYMPHOCYTES % (AUTO) 10 % (12-44); MEAN CORPUSCULAR HEMOGLOBIN 33 pg (25-34); MEAN CORPUSCULAR HGB CONC 34 g/dL (32-36); MEAN CORPUSCULAR VOLUME 97 fL (80-99); MEAN PLATELET VOLUME 10.1 fL (9.0-12.2); MONOCYTES # (AUTO) 0.6 10^3/uL (0.0-1.0); MONOCYTES % (AUTO) 13 % (0-12); NEUTROPHILS # (AUTO) 3.1 10^3/uL (1.8-7.8); NEUTROPHILS % (AUTO) 69 % (42-75); PLATELET COUNT 211 10^3/uL (130-400); WHITE BLOOD COUNT 4.5 10^3/uL (4.3-11.0)
--- NOTE | 2021-04-29 03:01 | ED EENT ---
History of Present Illness General Stated Complaint: NOSE BLEED Source: patient History of Present Illness Date Seen by Provider: Apr 29, 2021 Time Seen by Provider: 02:33 Initial Comments PT ARRIVES VIA POV FROM HOME C/O RIGHT SIDED NOSE BLEED--STARTED 15 MINUTES PRIOR TO ARRIVAL STATES HE WAS JUST SITTING, WHEN NOSE BEGAN TO BLEED NO NASAL PAIN OR TRAUMA NO HISTORY OF NOSEBLEEDS PT TAKES MELOXICAM AND ASPIRIN 81 MG PT STATES HE HAS HAD COLD SYMPTOMS AND FEVER X 1 WEEK. NO FEVER TODAY SAW DR. BRADY ON 04/27/21 --HAD A FLU TEST DONE IN OFFICE AND HAD COVID-19 TEST DONE TODAY OUTPATIENT HERE AT HOSPITAL--BOTH FLU AND COVID TESTS WERE NEGATIVE WAS PRESCRIBED CEFDINIR. PT FULLY VACCINATED FOR COVID-19 PCP: DR. BRADY Allergies and Home Medications Allergies Coded Allergies: Iodinated Contrast Media (Unverified Allergy, Severe, ANAPHYLAXIS, 07/18/14) LIPS SWELLED, THROAT SWELLED, HIVES ON FACE morphine (Verified Allergy, Intermediate, RASH, 05/16/12) Home Medications Ciprofloxacin HCl 500 Mg Tablet, 500 MG PO BID Prescribed by: JENNIFER DE OLIVEIRA on 01/18/21 0917 Finasteride 5 Mg Tablet, 5 MG PO DAILY, (Reported) Gabapentin 300 Mg Capsule, 300 MG PO BID, (Reported) Meloxicam 7.5 Mg Tablet, 7.5 MG PO DAILY, (Reported) Metoprolol Succinate 100 Mg Tab.er.24h, 100 MG PO DAILY, (Reported) Pantoprazole Sodium 40 Mg Tablet.dr, 40 MG PO DAILY, (Reported) Simvastatin 20 Mg Tablet, 20 MG PO HS, (Reported) Tamsulosin HCl 0.4 Mg Cap, 0.4 MG PO DAILY, (Reported) Patient Home Medication List Home Medication List Reviewed: Yes Review of Systems Review of Systems Constitutional: see HPI; No dizziness Eyes: No Symptoms Reported Ears: No Symptoms Reported Nose: see HPI Mouth: no symptoms reported Throat: no symptoms reported Respiratory: cough; No short of breath Cardiovascular: no symptoms reported Gastrointestinal: no symptoms reported Musculoskeletal: no symptoms reported Skin: no symptoms reported Neurological: No Symptoms Reported Hematologic/Lymphatic: No Symptoms Reported Past Hgjhuqo-Onpxuw-Zkiufq Hx Immunizations Up To Date Tetanus Booster (TDap): Unknown Seasonal Allergies Seasonal Allergies: No Past Medical History Surgeries: Yes (TESTICLE SX, COLON RESECTION, BACK X2, L TKR; PROSTATE SPACER FOR RADIATION) Abdominal, Bowel Surgery, CABG, Joint Replacement, Orthopedic, Testicular Respiratory: No Currently Using CPAP: No Currently Using BIPAP: No Cardiac: Yes (open heart surgery 04/26) Coronary Artery Disease, High Cholesterol, Hypertension Neurological: No Reproductive Disorders: No Sexually Transmitted Disease: No HIV/AIDS: No Genitourinary: Yes (PROSTATE CA) Gastrointestinal: Yes (COLON CANCER, GASTRITIS?) Ulcer Musculoskeletal: Yes Arthritis, Chronic Back Pain, Fractures Endocrine: No HEENT: No Loss of Vision: Denies Hearing Impairment: Denies Cancer: Yes Prostate, Colon Did You Recieve Any Treatments: Yes COLON CANCER TREATED WITH SURGERY--COLON RESECTION PROSTATE CANCER TREATED WITH EXTERNAL RADIATION--01/2021 Psychosocial: No Integumentary: No (OILY SKIN) Blood Disorders: No Physical Exam Vital Signs Vital Signs - First Documented 04/29/21 03:21 Temp 36.5 Pulse 79 Resp 20 B/P (MAP) 193/97 (129) Pulse Ox 98 O2 Delivery Room Air Height, Weight, BMI Height: 5'6.00" Weight: 168lbs. 0.0oz. [id number]; 27.47 BMI Method:Stated General Appearance: WD/WN, no apparent distress Nose: No sinus tenderness; other (MINIMAL OOZING FROM RIGHT NARE--BLEEDING SEEMS TO BE MOSTLY FROM LATERAL WALL OF RIGHT NARE. ) Mouth/Throat: other (SCANT AMOUNT OF BLOOD PRESENT IN POSTERIOR PHARYNX, BUT NO ACTIVE BLEEDING DOWN POSTERIOR PHARYNX) Respiratory: normal breath sounds Neurologic/Psychiatric: no motor/sensory deficits, alert Skin: normal color, warm/dry Procedures/Interventions Nasal : Nasal Location: Right Clots Cleared from Nasal: Patient Blowing Inspection with: Otoscope Nasal Procedures: Rapid Rhino Progress RAPID RHINO 5.5 CM PLACED IN RIGHT NARE PT OBSERVED IN ER FOR AN HOUR NO FURTHER BLEEDING ANTERIOR OR POSTERIORLY Progress/Results/Core Measures Results/Orders Lab Results Laboratory Tests Test 04/29/21 02:46 Range/Units White Blood Count 4.5 4.3-11.0 10^3/uL Red Blood Count 3.84 L 4.30-5.52 10^6/uL Hemoglobin 12.6 L 13.3-17.7 g/dL Hematocrit 37 L 40-54 % Mean Corpuscular Volume 97 80-99 fL Mean Corpuscular Hemoglobin 33 25-34 pg Mean Corpuscular Hemoglobin Concent 34 32-36 g/dL Red Cell Distribution Width 12.3 10.0-14.5 % Platelet Count 211 130-400 10^3/uL Mean Platelet Volume 10.1 9.0-12.2 fL Immature Granulocyte % (Auto) 2 % Neutrophils (%) (Auto) 69 42-75 % Lymphocytes (%) (Auto) 10 L 12-44 % Monocytes (%) (Auto) 13 H 0-12 % Eosinophils (%) (Auto) 5 0-10 % Basophils (%) (Auto) 1 0-10 % Neutrophils # (Auto) 3.1 1.8-7.8 10^3/uL Lymphocytes # (Auto) 0.5 L 1.0-4.0 10^3/uL Monocytes # (Auto) 0.6 0.0-1.0 10^3/uL Eosinophils # (Auto) 0.2 0.0-0.3 10^3/uL Basophils # (Auto) 0.0 0.0-0.1 10^3/uL Immature Granulocyte # (Auto) 0.1 0.0-0.1 10^3/uL Prothrombin Time 13.3 12.2-14.7 SEC INR Comment 1.0 0.8-1.4 Activated Partial Thromboplast Time 31 24-35 SEC My Orders Orders - BRICE OKEEFE DO Tranexamic Acid Injection (Cyklokapron I (04/29/21 02:33) Cbc With Automated Diff (04/29/21 02:38) Protime With Inr (04/29/21 02:38) Partial Thromboplastin Time (04/29/21 02:38) Vital Signs/I&O 04/29/21 03:21 Temp 36.5 Pulse 79 Resp 20 B/P (MAP) 193/97 (129) Pulse Ox 98 O2 Delivery Room Air Departure Impression Primary Impression: Right-sided epistaxis Additional Impression: Upper respiratory infection Disposition: 01 HOME, SELF-CARE Condition: Stable Departure-Patient Inst. Decision time for Depature: 03:45 Referrals: JACI FATIMA MD, RICK D MD (PCP/Family) Primary Care Physician Patient Instructions: Nosebleeds, Upper Respiratory Infection ED Add. Discharge Instructions: LEAVE NASAL PACKING IN PLACE DO NOT RUB OR BLOW NOSE CONTINUE CEFDINIR PRESCRIBED FOLLOW UP WITH DR. FATIMA, ENT, IN THE NEXT COUPLE OF DAYS FOR FURTHER CARE--CALL THIS MORNING TO SCHEDULE FOLLOW UP APPOINTMENT BRICE OKEEFE DO Apr 29, 2021 03:01
[2021-04-29 03:02] LABS: PROTHROMBIN TIME PATIENT 13.3 SEC (12.2-14.7)
[2021-04-29 03:57] VITALS: BP 142/71
== END 2021-04-29 03:58 | disposition home or self-care (01) ==
LOC: EDUNIT# 02:24 → ER 02:27
DX: R04.0 Epistaxis (principal); J06.9 Acute upper respiratory infection, unspecified; I10 Essential (primary) hypertension; E78.00 Pure hypercholesterolemia, unspecified; I25.10 Atherosclerotic heart disease of native coronary artery without angina pectoris; G89.29 Other chronic pain; M54.9 Dorsalgia, unspecified; Z95.1 Presence of aortocoronary bypass graft; Z79.1 Long term (current) use of non-steroidal anti-inflammatories (NSAID); Z79.899 Other long term (current) drug therapy
CPT/HCPCS: 36415; 85025; 85610; 85730; 99284

== ENCOUNTER 2021-06-03 10:22 | Outpatient (RCR) | payer MEDICARE, OTHER | END 2021-06-29 | disposition home or self-care (01) | LOC: ONC 10:22 | PROVIDERS: ATTEND Radiology Radiation Oncology | DX: Z51.0 Encounter for antineoplastic radiation therapy (principal); C61 Malignant neoplasm of prostate; I25.10 Atherosclerotic heart disease of native coronary artery without angina pectoris; I10 Essential (primary) hypertension; E78.5 Hyperlipidemia, unspecified; Z85.038 Personal history of other malignant neoplasm of large intestine; Z96.652 Presence of left artificial knee joint; Z98.890 Other specified postprocedural states; Z87.891 Personal history of nicotine dependence | CPT/HCPCS: 77336; 77385; 99213 ==

== ENCOUNTER 2022-12-08 11:37 | Outpatient (RCR) | payer MEDICARE, OTHER | END 2022-12-13 | disposition home or self-care (01) | LOC: ONC 11:37 | PROVIDERS: ATTEND Radiology Radiation Oncology | DX: C61 Malignant neoplasm of prostate (principal); I25.10 Atherosclerotic heart disease of native coronary artery without angina pectoris; I10 Essential (primary) hypertension; E78.5 Hyperlipidemia, unspecified; Z85.038 Personal history of other malignant neoplasm of large intestine; Z96.652 Presence of left artificial knee joint; Z98.890 Other specified postprocedural states | CPT/HCPCS: 99213 ==

== ENCOUNTER → 2023-05-23 | Outpatient (CLI) | payer MEDICARE, OTHER ==
--- NOTE | 2023-05-23 17:07 | Diagnostic Imaging Report ---
HISTORY: Bilateral shoulder pain. TECHNIQUE: Two views of the bilateral shoulders. COMPARISON: None. FINDINGS: No acute fracture is seen in the bilateral shoulders. There are mild degenerative changes in the acromioclavicular and glenohumeral joints, left greater than right. Alignment appears normal. There are small irregular calcifications projecting over the left humeral head. IMPRESSION: 1. Mild degenerative changes in the bilateral shoulders, left greater than right. No acute fracture is seen. 2. Small calcification projecting over the left humeral head, could be joint bodies, calcific tendinitis, or possibly a chondroid matrix lesion of bone. No aggressive features are seen. Dictated by: Dictated on workstation # [id number]
== END ==
LOC: RAD 13:40
PROVIDERS: ATTEND Family Medicine
DX: M19.012 Primary osteoarthritis, left shoulder (principal); M19.011 Primary osteoarthritis, right shoulder

== ENCOUNTER 2023-08-06 22:30 | Emergency (ER) | payer MEDICARE, OTHER ==
[~2023-08-06] VITALS: Ht 165.1 cm; Wt 72.6 kg
[2023-08-06] MEDS ORDERED: ASPIRIN 81 MG CHEWABLE TABLET PO ONE (22:45)
[2023-08-06] MEDS ORDERED: NITROGLYCERIN 2% OINT 1 GM UNIT DOSE PACKET TOP ONE (22:45)
[2023-08-06 22:51] LABS: BASOPHILS % (AUTO) 0 % (0-10); EOSINOPHILS # (AUTO) 0.2 10^3/uL (0.0-0.3); EOSINOPHILS % (AUTO) 3 % (0-10); HEMATOCRIT 39 % (40-54); HEMOGLOBIN 13.2 g/dL (13.3-17.7); LYMPHOCYTES # (AUTO) 0.7 10^3/uL (1.0-4.0); LYMPHOCYTES % (AUTO) 12 % (12-44); MEAN CORPUSCULAR HEMOGLOBIN 33 pg (25-34); MEAN CORPUSCULAR HGB CONC 34 g/dL (32-36); MEAN CORPUSCULAR VOLUME 97 fL (80-99); MEAN PLATELET VOLUME 10.2 fL (9.0-12.2); MONOCYTES # (AUTO) 0.5 10^3/uL (0.0-1.0); MONOCYTES % (AUTO) 9 % (0-12); NEUTROPHILS # (AUTO) 4.4 10^3/uL (1.8-7.8); NEUTROPHILS % (AUTO) 75 % (42-75); PLATELET COUNT 171 10^3/uL (130-400); WHITE BLOOD COUNT 5.8 10^3/uL (4.3-11.0)
--- NOTE | 2023-08-06 22:55 | ED Cardiac General ---
History of Present Illness General Chief Complaint: Chest Pain Stated Complaint: CHEST PAIN - HIGH BP Source: patient, old records History of Present Illness Date Seen by Provider: Aug 06, 2023 Time Seen by Provider: 22:35 Initial Comments PT ARRIVES VIA POV FROM HOME WITH PT STATES THAT 15 MINUTES PRIOR TO ARRIVAL, HE HAD AN EPISODE OF CHEST PAIN THAT LASTED 3 MINUTES, AND IS NOT OCCURRING NOW HE STATES THE PAIN WAS SHARP AND STABBING TYPE PAIN TO HIS LEFT LATERAL LOWER RIB AREA HE CHECKED HIS BLOOD PRESSURE AND IT WAS 198/80, SO CAME HERE NO SHORTNESS OF BREATH NO SWEATS NO NAUSEA/VOMITING NO SWELLING IN LEGS/FEET OR PAIN IN CALVES NO DIZZINESS OR SYNCOPE NO PALPITATIONS PT STATES HE WAS A LITTLE LIGHT HEADED EARLIER TODAY, AND A LITTLE BIT YESTERDAY--WITH ACTIVITY. PT TOOK 1 BABY ASPIRIN PRIOR TO ARRIVAL PT HAS HISTORY OF NH WITH 4 VESSEL CABG IN 2011. THE PAIN HE HAD WITH NH WAS DIFFERENT THAN THE PAIN HE HAD TONIGHT. HE DOES NOT HAVE NTG AT HOME PT SAW DR. PRADO THIS PAST WEEK FOR PRE-OP CLEARANCE, BEFORE SCHEDULED RIGHT SHOULDER SURGERY BY DR. FELICIANO THIS COMING MONDAY EKG IN THE OFFICE WAS NORMAL, PER PT. PT TAKES TOPROL AND 81 MG ASPIRIN HE IS NOT ON ANY BLOOD THINNERS PT IS NOT DIABETIC. HE HAS RECENTLY BEEN ON DOXYCYCLINE FOR HIS EYES. PCP: DR. LUKE ENVIRONMENTAL ENGINEERING PROFESSOR: DR. PRADO Allergies and Home Medications Allergies Coded Allergies: Iodinated Contrast Media (Unverified Allergy, Severe, ANAPHYLAXIS, 07/18/14) LIPS SWELLED, THROAT SWELLED, HIVES ON FACE morphine (Verified Allergy, Intermediate, RASH, 05/16/12) Patient Home Medication List Home Medication List Reviewed: Yes Ciprofloxacin HCl (Cipro) 500 Mg Tablet, 500 MG PO BID Prescribed by: JENNIFER DE OLIVEIRA on 01/18/21 09 Finasteride (Finasteride) 5 Mg Tablet, 5 MG PO DAILY, (Reported) Entered as Reported by: WAGNER DOE on 12/11/20936 Gabapentin (Neurontin) 300 Mg Capsule, 300 MG PO BID, (Reported) Entered as Reported by: WAGNER DOE on 12/11/20936 Meloxicam (Meloxicam) 7.5 Mg Tablet, 7.5 MG PO DAILY, (Reported) Entered as Reported by: LEXI THOMAS on 12/04/19 0933 Metoprolol Succinate (Metoprolol Succinate) 100 Mg Tab.er.24h, 100 MG PO DAILY, (Reported) Entered as Reported by: WAGNER DOE on 12/11/20 0937 Pantoprazole Sodium (Pantoprazole Sodium) 40 Mg Tablet.dr, 40 MG PO DAILY, (Reported) Entered as Reported by: SHAHEEN JAIMES on 07/20/17 1128 Simvastatin (Simvastatin) 20 Mg Tablet, 20 MG PO HS, (Reported) Entered as Reported by: SHAHEEN JAIMES on 07/20/17 1128 Tamsulosin HCl (Flomax) 0.4 Mg Cap, 0.4 MG PO DAILY, (Reported) Entered as Reported by: JENNIFER DE OLIVEIRA on 01/18/21 0845 Review of Systems Review of Systems Constitutional: see HPI EENTM: No Symptoms Reported Respiratory: No Symptoms Reported Cardiovascular: See HPI Gastrointestinal: No Symptoms Reported Genitourinary: No Symptoms Reported Musculoskeletal: see HPI Skin: no symptoms reported Psychiatric/Neurological: No Symptoms Reported Endocrine: No Symptoms Reported Hematologic/Lymphatic: No Symptoms Reported Past [id number]-[id number] Hx Patient Social History Tobacco Use?: No Substance use?: No Alcohol Use?: No Immunizations Up To Date Tetanus Booster (TDap): Unknown Seasonal Allergies Seasonal Allergies: No Past Medical History Surgeries: Yes (TESTICLE SX, COLON RESECTION, BACK X2, L TKR; PROSTATE SPACER FOR RADIATION) Abdominal, Bowel Surgery, Cardiac, CABG, Joint Replacement, Orthopedic, Testicular Respiratory: No Currently Using CPAP: No Currently Using BIPAP: No Cardiac: Yes (4 VESSEL CABG 2011; NSTEMI) Coronary Artery Disease, Heart Attack, High Cholesterol, Hypertension Neurological: No Reproductive Disorders: No Sexually Transmitted Disease: No HIV/AIDS: No Genitourinary: Yes (PROSTATE CA) Gastrointestinal: Yes (COLON CANCER, GASTRITIS?) Ulcer Musculoskeletal: Yes Arthritis, Chronic Back Pain, Fractures Endocrine: No HEENT: No Loss of Vision: Denies Hearing Impairment: Denies Cancer: Yes Prostate, Colon Did You Recieve Any Treatments: Yes What Type of Treatment Did You: Surgical Intervention Psychosocial: No Integumentary: No (OILY SKIN) Blood Disorders: No Physical Exam Vital Signs Vital Signs - First Documented 08/06/23 08/07/23 22:33 01:53 Temp 37.2 Pulse 63 Resp 19 B/P (MAP) 196/96 (129) Pulse Ox 95 O2 Delivery Room Air Capillary Refill : Height, Weight, BMI Height: 5'6.00" Weight: 168lbs. 0.0oz. [id number]; 23.00 BMI Method:Stated General Appearance: No Apparent Distress, WD/WN Neck: Normal Inspection; No JVD Respiratory: Chest Non Tender, Normal Breath Sounds, No Accessory Muscle Use, No Respiratory Distress Cardiovascular: Regular Rate, Rhythm, No Edema, No JVD, No Murmur, Normal Peripheral Pulses Gastrointestinal: Non Tender, Soft Extremity: Normal Inspection, No Calf Tenderness, No Pedal Edema Neurologic/Psychiatric: Alert, Oriented x3, No Motor/Sensory Deficits, Normal Mood/Affect, registered occupational therapist II-XII Norm as Tested Skin: Normal Color, Warm/Dry; No Rash Progress/Results/Core Measures Results/Orders Lab Results Laboratory Tests Test 08/06/23 22:44 08/07/23 01:00 Range/Units White Blood Count 5.8 4.3-11.0 10^3/uL Red Blood Count 4.02 L 4.30-5.52 10^6/uL Hemoglobin 13.2 L 13.3-17.7 g/dL Hematocrit 39 L 40-54 % Mean Corpuscular Volume 97 80-99 fL Mean Corpuscular Hemoglobin 33 25-34 pg Mean Corpuscular Hemoglobin Concent 34 32-36 g/dL Red Cell Distribution Width 12.5 10.0-14.5 % Platelet Count 171 130-400 10^3/uL Mean Platelet Volume 10.2 9.0-12.2 fL Immature Granulocyte % (Auto) 1 % Neutrophils (%) (Auto) 75 42-75 % Lymphocytes (%) (Auto) 12 12-44 % Monocytes (%) (Auto) 9 0-12 % Eosinophils (%) (Auto) 3 0-10 % Basophils (%) (Auto) 0 0-10 % Neutrophils # (Auto) 4.4 1.8-7.8 10^3/uL Lymphocytes # (Auto) 0.7 L 1.0-4.0 10^3/uL Monocytes # (Auto) 0.5 0.0-1.0 10^3/uL Eosinophils # (Auto) 0.2 0.0-0.3 10^3/uL Basophils # (Auto) 0.0 0.0-0.1 10^3/uL Immature Granulocyte # (Auto) 0.0 0.0-0.1 10^3/uL Prothrombin Time 13.9 12.2-14.7 SEC INR Comment 1.0 0.8-1.4 Activated Partial Thromboplast Time 30 24-35 SEC Sodium Level 140 135-145 MMOL/L Potassium Level 3.8 3.6-5.0 MMOL/L Chloride Level 105 98-107 MMOL/L Carbon Dioxide Level 27 21-32 MMOL/L Anion Gap 8 5-14 MMOL/L Blood Urea Nitrogen 17 7-18 MG/DL Creatinine 0.87 0.60-1.30 MG/DL Estimat Glomerular Filtration Rate 87 BUN/Creatinine Ratio 20 Glucose Level 114 H 70-105 MG/DL Calcium Level 9.1 8.5-10.1 MG/DL Corrected Calcium 9.3 8.5-10.1 MG/DL Magnesium Level 1.9 1.6-2.4 MG/DL Total Bilirubin 0.4 0.1-1.0 MG/DL Aspartate Amino Transf (AST/SGOT) 14 5-34 U/L Alanine Aminotransferase (ALT/SGPT) 13 0-55 U/L Alkaline Phosphatase 71 40-136 U/L Total Creatine Kinase 64 30-200 U/L Creatine Kinase MB 1.0 <6.6 NG/ML Myoglobin 31.2 10.0-92.0 NG/ML Troponin I < 0.028 < 0.028 <0.028 NG/ML B-Type Natriuretic Peptide 139.0 H <100.0 PG/ML Total Protein 6.3 L 6.4-8.2 GM/DL Albumin 3.7 3.2-4.5 GM/DL My Orders Orders - BRICE OKEEFE DO Ekg Tracing (08/06/23 22:33) Cbc And Automated Diff (08/06/23 22:36) Magnesium (08/06/23 22:36) Chest 1 View, Ap/Pa Only (08/06/23 22:36) Ekg Tracing (08/06/23 22:36) Comprehensive Metabolic Panel (08/06/23 22:36) Myoglobin Serum (08/06/23 22:36) Protime With Inr (08/06/23 22:36) Partial Thromboplastin Time (08/06/23 22:36) O2 (08/06/23 22:36) Monitor-Rhythm Ecg Trace Only (08/06/23 22:36) Ed Iv/Invasive Line Start (08/06/23 22:36) Creatine Kinase (08/06/23 22:36) Creatine Kinase Mb (08/06/23 22:36) Bnp Marilin (08/06/23 22:36) Troponin I Mar[place] (08/06/23 22:36) Aspirin Chewable Tablet (Aspirin Chewabl (08/06/23 22:45) Nitroglycerin Ointment (Nitroglycerin (08/06/23 22:45) Hydralazine Injection (Hydralazine Injec (08/07/23 00:00) Ekg Tracing (08/07/23 01:00) Troponin I [place] (08/07/23 01:00) Medications Given in ED Current Medications Medications Dose Ordered Sig/Jeff Route Start Time Stop Time Status Last Admin Dose Admin Aspirin 324 mg ONCE ONCE PO 08/06/23 22:45 08/06/23 22:47 DC 08/06/23 22:50 324 MG Hydralazine HCl 10 mg ONCE ONCE IV 08/07/23 00:00 08/07/23 00:01 DC 08/07/23 00:00 10 MG Nitroglycerin 1 inch ONCE ONCE TOP 08/06/23 22:45 08/06/23 22:47 DC 08/06/23 22:50 1 INCH Vital Signs/I&O 08/06/23 08/07/23 22:33 01:53 Temp 37.2 37.2 Pulse 63 60 Resp 19 16 B/P (MAP) 196/96 (129) 131/65 Pulse Ox 95 95 O2 Delivery Room Air Progress Progress Note : Progress Note VITALS ON ARRIVAL: TEMP GIVEN: -ASPIRIN -NITROPASTE -HYDRALAZINE LABS: -CBC NORMAL -CMP NORMAL -MG NORMAL -TROPONIN NEGATIVE X 2 -BNP 139 -PT/PTT/INR NORMAL EKG UNREMARKABLE AND UNCHANGED FROM PREVIOUS REPEAT EKG IS UNCHANGED REPEAT TROPONIN IS NEGATIVE CXR UNREMARKABLE, PENDING RADIOLOGIST REVIEW NO COMPLAINTS OF CHEST PAIN AT ANY TIME DURING ER STAY BP DOWN WITH NITROPASTE AND HYDRALAZINE PT OBSERVED IN ER AND REPEAT EKG IS UNCHANGED And REPEAT TROPONIN IS NEGATIVE PT HAD NO CHEST PAIN OR ANY SYMPTOMS OF ANY KIND DURING ENTIRE ER STAY REVIEWED PRIOR RECORDS, INCLUDING ER VISITS/ADMITS/H&P'S/CONSULTS/DISCHARGE SUMMARIES, TESTS/PROCEDURES. DISCUSSED TEST RESULTS, ANTICIPATED COURSE, SYMPTOMATIC TREATMENT, NEED FOR FOLLOW UP AND RETURN PRECAUTIONS PT FEELS COMFORTABLE GOING HOME ADVISED PT TO CONTACT DR. PRADO TODAY REGARDING THIS ER VISIT, HE IS SCHEDULED TO HAVE SHOULDER SURGERY THIS MONDAY WITH DR. FELICIANO. Initial ECG Impression Date: Aug 06, 2023 Initial ECG Impression Time: 22:38 Initial ECG Rate: 70 Initial ECG Rhythm: Normal Sinus (OCCASINAL PVC) Initial ECG Intervals TX 189 QRS 99 QT/QTC 395/415 Initial ECG Comparisson: Unchanged Comment INTERPRETED BY ME EKG : EKG Time: 01:09 Rate: 57 Rhythm: Normal Sinus Intervals TX 181 QRS 100 QT/QTC 421/414 ECG Comparisson: Unchanged Comment INTERPRETED BY ME Diagnostic Imaging Comments CXR--NO ACUTE PROCESS, PENDING RADIOLOGIST REVIEW Reviewed: Reviewed by Me Departure Impression Primary Impression: Chest pain Additional Impressions: Hypertensive urgency HX OF CAD WITH CABG Disposition: HOME, SELF-CARE Condition: Stable Departure-Patient Inst. Decision time for Depature: 01:34 Referrals: MAURA LUKE MD (PCP/Family) Primary Care Physician JEFFERY PRADO MD FACP FACC CCDS Patient Instructions: Chest Pain, Adult ED Add. Discharge Instructions: CONTINUE YOUR REGULAR MEDICATIONS PRESCRIBED FOLLOW UP WITH DR. PRADO IN 1-2 DAYS FOR FURTHER CARE--CALL IN THE MORNING TO SCHEDULE AN APPOINTMENT All discharge instructions reviewed with patient and/or family. Voiced understanding. BRICE OKEEFE DO Aug 06, 2023 22:55
[2023-08-06 23:02] LABS: ALBUMIN 3.7 GM/DL (3.2-4.5)
[2023-08-06 23:03] LABS: CHLORIDE 105 MMOL/L (98-107); POTASSIUM 3.8 MMOL/L (3.6-5.0); SODIUM 140 MMOL/L (135-145)
[2023-08-06 23:04] LABS: CALCIUM 9.1 MG/DL (8.5-10.1); PROTHROMBIN TIME PATIENT 13.9 SEC (12.2-14.7)
[2023-08-06 23:05] LABS: GLUCOSE 114 MG/DL (70-105); TOTAL PROTEIN 6.3 GM/DL (6.4-8.2)
[2023-08-06 23:06] LABS: CARBON DIOXIDE 27 MMOL/L (21-32)
[2023-08-06 23:07] LABS: BILIRUBIN,TOTAL 0.4 MG/DL (0.1-1.0)
[2023-08-06 23:08] LABS: ALKALINE PHOSPHATASE 71 U/L (40-136)
[2023-08-06 23:09] LABS: CREATININE SERUM 0.87 MG/DL (0.60-1.30); GFR ESTIMATED 87
[2023-08-06 23:10] LABS: BUN/CREATININE RATIO 20
[2023-08-06 23:11] LABS: ALANINE AMINOTRANSFERASE 13 U/L (0-55); MAGNESIUM 1.9 MG/DL (1.6-2.4)
[2023-08-06 23:12] LABS: CREATINE KINASE 64 U/L (30-200)
[2023-08-07] MEDS ORDERED: hydrALAZINE INJECTION 20 MG/ML VIAL IV ONE
[2023-08-07 01:53] VITALS: BP 131/65
--- NOTE | 2023-08-07 07:20 | Diagnostic Imaging Report ---
INDICATION: Chest pain. Comparison is made with prior exam of 10/15/2020. FINDINGS: There is cardiomegaly. There has been a previous median sternotomy. The lungs are clear. No pleural effusion or pneumothorax. Mediastinum is unremarkable. IMPRESSION: No acute cardiopulmonary abnormality. Cardiomegaly. Dictated by: Dictated on workstation # [id number]
== END 2023-08-07 01:53 | disposition home or self-care (01) ==
LOC: EDUNIT# 22:30 → ER 22:32
DX: I16.0 Hypertensive urgency (principal); I11.9 Hypertensive heart disease without heart failure; I25.2 Old myocardial infarction; Z86.79 Personal history of other diseases of the circulatory system; Z95.1 Presence of aortocoronary bypass graft; Z79.82 Long term (current) use of aspirin
CPT/HCPCS: 36415; 71045; 80053; 82550; 82553; 83735; 83874; 83880; 84484; 85025; 85610; 85730; 93005; 93041; 96374